=== PATIENT | male | born 1955 | race African-American/Black ===

== ENCOUNTER → 2017-02-07 | Outpatient (CLI) | payer MEDICARE, OTHER ==
[~2017-02-07] VITALS: Ht 154.9 cm; Wt 102.1 kg
[~2017-02-07] MED LIST: ALBU0.63 NEB; ASPI325T PO; ATEN25TA PO; CHOL1TAB31 PO; COLE1TAB2 PO; DO NOT ADM ANY ANTICOAGULANT DRUGS XX PRN; HUMALOG SQ; LANTUS2P SQ; NITR1SUB3 SL; ONABOTULINUMTOXINA INJ 100 UNITS/VIAL ONE; PROPOFOL 200 MG/20 ML AMP IV ONE; PROT40TA PO; TIOT1AER2 INH; TUMS500C CHEW; ZANT150T2 PO
[2017-02-07 09:50] VITALS: BP 177/74; PULSE 70; RESP 22; TEMP 99; O2SAT 90
--- NOTE | 2017-02-07 12:19 | GIPROC ---
[facility] [address] [facility]. [facility], [address] EGD WITH DILATION PROCEDURE REPORT EXAM DATE: 02/07/2017 PATIENT NAME: Sarbjit Burgess MR#: [id number] BIRTHDATE: 1955 ATTENDING: Abril Herndon MD ORDER #: [id number] TYPISTS SUPERVISOR: Bran Schneider and Broderick Cesar STATUS: outpatient INDICATIONS: The patient is a 61 yr old male here for an EGD with dilation due to achalasia dysphagia PROCEDURE PERFORMED: EGD w/ dilation of esophagus via guidewire EGD w/ directed submucosal injection(s), any substance MEDICATIONS: Per Anesthesia and None. TOPICAL ANESTHETIC: Cetacaine [place] CONSENT: The patient understands the risks and benefits of the procedure and understands that these risks include, but are not limited to: sedation, allergic reaction, infection, perforation and/or bleeding. Alternative means of evaluation and treatment include, among others: physical exam, x-rays, and/or surgical intervention. The patient elects to proceed with this endoscopic procedure. medical equipment was checked for proper function. Hand hygiene and appropriate measures for infection prevention was taken. After the risks, benefits and alternatives of the procedure were thoroughly explained, Informed consent was verified, confirmed and timeout was successfully executed by the treatment team. The patient was anesthetized with topical anesthesia and the Pentax EG-[id number] endoscope was introduced through the mouth and advanced to the second portion of the duodenum. The instrument was slowly withdrawn as the mucosa was fully examined. Dilated esophagus tight eg junction retained food in stomach suggesting gastroparesis BOTOX injected in distal esophagus-100 units-25 units in each quadrant. Dilation was performed at gastroesophageal junction. DILATOR: SIZE(S): RESISTANCE: HEME: APPEARANCE: Dilator: Savary over guidewire Size(s): 17 COMMENT: Retroflexed views revealed a hiatal hernia ADVERSE EVENTS: There were no complications. IMPRESSIONS: 1. Dilated esophagus tight eg junction retained food in stomach suggesting gastroparesis BOTOX injected in distal esophagus-100 units-25 units in each quadrant 2. Retroflexed views revealed a hiatal hernia RECOMMENDATIONS: 1. Await biopsy results. Biopsy results will not be ready for 7-10 days. If you don't hear from us in two weeks, call our office for biopsy results. 2. Anti-reflux regimen 3. Continue PPI 4. Avoid NSAIDS REPEAT EXAM: Return 6 months EGD with dilatation Abril Herndon MD eSigned: Abril Herndon MD 02/07/2017 12:19 PM cc: Gideon Wadsworth M.D. DOCUMENT ADDENDUM eSigned: Abril Herndon MD 02/07/2017 12:35 PM Reason for addendum: [ ] Correction of inaccurate information [ ] Recently acquired lab/pathology results [x] Additional information Comments: biopsy from distal esophagus-esophagitis PATIENT NAME: Sarbjit Burgess MR#: [id number]
[2017-02-07 12:50] VITALS: BP 152/75; PULSE 62; RESP 20; TEMP 98.6; O2SAT 93
== END ==
LOC: HEND 08:57
PROVIDERS: ATTEND Internal Medicine Gastroenterology
DX: K22.0 Achalasia of cardia (principal); R13.10 Dysphagia, unspecified; K44.9 Diaphragmatic hernia without obstruction or gangrene; K21.0 Gastro-esophageal reflux disease with esophagitis
CPT/HCPCS: 00740; 43236; 43239; 43248; 76937; 88305; C1769; J0585

== ENCOUNTER 2017-08-01 07:57 | Observation (INO) | payer MEDICARE, OTHER ==
[~2017-08-01] VITALS: Ht 154.9 cm; Wt 93.8 kg
[~2017-08-01 07:57] MED LIST changes: -DO NOT ADM ANY ANTICOAGULANT DRUGS XX PRN; -ONABOTULINUMTOXINA INJ 100 UNITS/VIAL ONE; -PROPOFOL 200 MG/20 ML AMP IV ONE
[2017-08-01] MEDS ORDERED: PROPOFOL 200 MG/20 ML AMP IV PUSH ONE (07:58)
[2017-08-01] MEDS ORDERED: LACT10SO PO (08:29)
[2017-08-01] MEDS ORDERED: AMLO10TA2 PO (08:29)
[2017-08-01] MEDS ORDERED: METOPROLOL TARTRATE 25 MG TAB PO PRN (08:45)
[2017-08-01] MEDS ORDERED: INSULIN HUMAN REGULAR 1,000 UNITS/10 ML VIAL SQ PRN (08:45)
[2017-08-01] MEDS ORDERED: CHLORHEXIDINE GLUCONATE 2 % 1 PACK (2 CLOTHS) TOPICAL PRN (08:45)
[2017-08-01] MEDS ORDERED: LACTATED RINGER'S 1000 ML IV PRN (08:45)
[2017-08-01] MEDS ORDERED: SODIUM CHLORID 0.9% 500 ML IV PRN (08:45)
[2017-08-01] MEDS ORDERED: POVIDONE IODINE 5% (ANTISEPSIS KIT) 4 APPLICATIONS EACH NARE PRN (08:45)
[2017-08-01] MEDS ORDERED: DEXTROSE 5%-LACTATED RING INJ 1,000 ML IV ONE (09:00)
[2017-08-01] MEDS ORDERED: KETAMINE HCL 500 MG/5 ML VIAL ONE (09:59)
[2017-08-01] MEDS ORDERED: ONABOTULINUMTOXINA INJ 100 UNITS/VIAL ONE (10:00)
[2017-08-01] MEDS ORDERED: GLYCOPYRROLATE 0.2 MG/ML VIAL IV ONE (10:08)
--- NOTE | 2017-08-01 10:46 | GIPROC ---
[facility] [address] [facility]. [facility], [address] EGD PROCEDURE REPORT EXAM DATE: 08/01/2017 PATIENT NAME: Sarbjit Burgess MR #: [id number] BIRTHDATE: 1955 ATTENDING: Abril Herndon MD ORDER #: [id number] CATERPILLAR TRACTOR OPERATOR: Lynsey Love and Jennifer Kaiser STATUS: outpatient INDICATIONS: The patient is a 62 yr old male here for an EGD due to dysphagia PROCEDURE PERFORMED: EGD w/ biopsy EGD w/ dilation of esophagus via guidewire egd with botox EGD w/ directed submucosal injection(s), any substance MEDICATIONS: None and Per Anesthesia. TOPICAL ANESTHETIC: none CONSENT: The patient understands the risks and benefits of the procedure and understands that these risks include, but are not limited to: sedation, allergic reaction, infection, perforation and/or bleeding. Alternative means of evaluation and treatment include, among others: physical exam, x-rays, and/or surgical intervention. The patient elects to proceed with this endoscopic procedure. medical equipment was checked for proper function. Hand hygiene and appropriate measures for infection prevention was taken. After the risks, benefits and alternatives of the procedure were thoroughly explained, Informed consent was verified, confirmed and timeout was successfully executed by the treatment team. The patient was anesthetized with topical anesthesia and the Pentax EG-[id number] endoscope was introduced through the mouth and advanced to the second portion of the duodenum. Retroflexed views revealed a hiatal hernia The gastroscope was then slowly withdrawn and removed. Gastritis antrum biopsy old peg tube site noted esophagitis distal esophagus-biopsy dilated esophagus, tight EG junction -consistent with achalasia BOTOX injected-100 units at EG junction - 25 units in each quadrant. ADVERSE EVENTS: There were no complications. IMPRESSIONS: 1. Gastritis antrum biopsy old peg tube site noted esophagitis distal esophagus-biopsy dilated esophagus, tight EG junction -consistent with achalasia BOTOX injected-100 units at EG junction - 25 units in each quadrant 2. Retroflexed views revealed a hiatal hernia RECOMMENDATIONS: 1. Await biopsy results. Biopsy results will not be ready for 7-10 days. If you don't hear from us in two weeks, call our office for biopsy results. 2. Anti-reflux regimen 3. Continue PPI 4. Dilatations PRN PATIENT CONDITION: stable DISPOSITION: Home REPEAT EXAM: EGD pending biopsy results Abril Herndon MD eSigned: Abril Herndon MD 08/01/2017 10:45 AM cc: Gideon Wadsworth M.D. DOCUMENT ADDENDUM eSigned: Abril Herndon MD 08/01/2017 11:23 AM Reason for addendum: [ ] Correction of inaccurate information [ ] Recently acquired lab/pathology results [x] Additional information Comments: s/p dilatation using Savary dilator 18 patietn will be kept 23 hr observations -s/p general anesthesia nneeds close monitoring PATIENT NAME: Sarbjit Burgess MR#: [id number]
[2017-08-01] MEDS ORDERED: *RESP: ALBUTEROL 2.5 MG/3 ML NEB (PRN) PERIprocedural Use ONLY NEB ONE (11:12)
[2017-08-01] MEDS ORDERED: *ONDANSETRON 4 MG VIAL PERIprocedural Use ONLY ONE (11:22)
--- NOTE | 2017-08-01 11:58 | RADRPT ---
EXAM DATE/TIME: 08/01/2017 11:19 [place] COMPARISON: CHEST SINGLE AP, May 03, 2016, 13:25. INDICATIONS : Cough post operatively. MEDICAL HISTORY : none available SURGICAL HISTORY : None. ENCOUNTER: Initial ACUITY: 1 day PAIN SCORE: 0/10 LOCATION: Bilateral upper chest FINDINGS: A single view of the chest demonstrates the lungs to be symmetrically aerated without evidence of mas s, infiltrate or effusion. The cardiomediastinal contours are unremarkable. Osseous structures are intact. CONCLUSION: Normal examination. David Bird MD on August 01, 2017 at 11:57 Board Certified Radiologist. This report was verified electronically.
[2017-08-01] MEDS ORDERED: DO NOT ADM ANY ANTICOAGULANT DRUGS PRN (12:15)
[2017-08-01] MEDS ORDERED: CALCIUM CARBONATE 500 MG CHEWABLE TAB CHEW PRN (13:00)
[2017-08-01] MEDS ORDERED: RESP: ALBUTEROL 0.63 MG/3 ML NEB (PRN) NEB (13:00)
[2017-08-01] MEDS ORDERED: ONDANSETRON HCL 4 MG/2 ML VIAL IVP PRN (13:00)
[2017-08-01] MEDS ORDERED: SODIUM CHLOR 0.9% 1000 ML INJ 1,000 ML IV SCH (13:00)
[2017-08-01] MEDS ORDERED: NALOXONE HCL 0.4 MG/ML AMP IV PUSH PRN (13:00)
[2017-08-01] MEDS ORDERED: SODIUM CHLORIDE 0.9% FLUSH 10 ML FLUSH IV FLUSH PRN (13:00)
[2017-08-01] MEDS ORDERED: ACETAMINOPHEN 325 MG TAB PO PRN (13:00)
[2017-08-01] MEDS ORDERED: DEXTROSE 50% IN WATER 50 ML VIAL(D50) IV PRN (13:15)
[2017-08-01] MEDS ORDERED: GLUCAGON 1 MG/ML VIAL OTHER PRN (13:15)
[2017-08-01] MEDS ORDERED: PT OWN MED: SPIRIVA RESPIMAT 2 INH DAILY INH SCH (13:45)
[2017-08-01] MEDS ORDERED: hydrALAZINE HCL 20 MG/ML VIAL ONE (14:27)
[2017-08-01 14:54] VITALS: BP 150/70; PULSE 68; RESP 16; TEMP 96.6; O2SAT 95
--- NOTE | 2017-08-01 15:57 | HHI.HP ---
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 Patient has significant past medical history achalasia and dilated esophagus. Patient follows up regularly with Dr. Herndon. Patient was admitted today for elective EGD with Botox injection. Per review of medical records, patient had an apneic event and desatted as he was being prepped for procedure. He required intubation by anesthesiology. Procedure was completed, patient tolerated well and was extubated in PACU. Dr. Herndon requested hospitalist admission for observation. Patient is somewhat of a poor historian, is at bedside providing most details. Patient does indicate that he did have some chest discomfort prior to procedure, no radiation. Was SOB, no wheezing. No recent fever, no chills. Patient is oxygen dependent and is chronically short of breath. His concrete rod buster is Dr. Colon. He has sleep apnea uses CPAP at night. At this time, he denies any chest pain, no shortness of breath. He is taking a regular diet and does not appear to be having any difficulty. Denies any history of coronary artery disease, does not have a regular data entry technician. He has had pericardiocentesis before as well as CHF. He has been compliant with his dialysis, he is on Saturday and Saturday. Chest x-ray was completed, no acute findings. Laboratory workup is pending. Patient is admitted for further evaluation and treatment. Review of Systems ROS Limitations: Poor Historian Constitutional: DENIES: Diaphoretic episodes, Fatigue, Fever, Weight gain, Weight loss, Chills, Dizziness, Change in appetite, Night Sweats Endocrine: DENIES: Heat/cold intolerance, Polydipsia, Polyuria, Polyphagia Eyes: DENIES: Blurred vision, Diplopia, Eye inflammation, Eye pain, Vision loss , Photosensitivity, Double Vision Respiratory: COMPLAINS OF: Shortness of breath, DENIES: Apneas, Cough, Snoring , Wheezing, Hemoptysis, Sputum production Cardiovascular: COMPLAINS OF: Chest pain, DENIES: Palpitations, Syncope, Dyspnea on Exertion, PND, Lower Extremity Edema, Orthopnea, Claudication Gastrointestinal: COMPLAINS OF: Constipation, Difficulty Swallowing, DENIES: Abdominal pain, Black stools, Bloody stools, Diarrhea, Nausea, Vomiting, Anorexia Genitourinary: DENIES: Sexual dysfunction, Urinary frequency, Urinary incontinence, Urgency, Hematuria, Dysuria, Nocturia, Penile Discharge, Testicular Pain, Testicular Swelling Musculoskeletal: DENIES: Joint pain, Muscle aches, Stiffness, Joint Swelling, Back pain, Neck pain Integumentary: DENIES: Abnormal pigmentation, Nail changes, Pruritus, Rash Hematologic/lymphatic: DENIES: Bruising, Lymphadenopathy Immunologic/allergic: DENIES: Eczema, Urticaria Neurologic: COMPLAINS OF: Abnormal gait, DENIES: Headache, Localized weakness, Paresthesias, Seizures, Speech Problems, Tremor, Poor Balance Psychiatric: DENIES: Anxiety, Confusion, Mood changes, Depression, Hallucinations, Agitation, Suicidal Ideation, Homicidal Ideation, Delusions Past Family Social History Past Medical History End-stage renal disease. Hypertension. Diabetes mellitus. Failed kidney transplant. COPD oxygen dependent Sleep apnea, uses CPAP at . Dr. Brandon is pulmonology Achalasia Constipation Hiatal esophagus PUD Congestive heart failure Pericardiocentesis CT in the past, doesn't see a data entry technician Previous PEG tube, was removed Gastroparesis Neurogenic bladder Iron deficiency anemia Hyperlipidemia Hyperparathyroidism TIA History of aspiration pneumonia Past Surgical History Kidney transplantation. Placement of AV dialysis shunt. Previous EGD with dilatation and Botox injection Previous colonoscopy PEG tube placement and removal Reported Medications Reported Meds & Active Scripts Active Reported Lactulose Liq (Lactulose) 10 Gm/15 Ml Soln 30 Ml PO BID Amlodipine (Amlodipine Besylate) 10 Mg Tab 10 Mg PO DAILY Spiriva Respimat Inh (Tiotropium Inh) 1.25 Mcg/Act Aero 2 Puff INH DAILY 1.25 mcg = 1 inhalation Zantac (Ranitidine HCl) 150 Mg Tab 150 Mg PO DAILY Protonix (Pantoprazole Sodium) 40 Mg Tab 40 Mg PO DAILY Humalog Inj (Insulin Human Lispro) 1,000 Unit/10 Ml Vial 1-9 Units SQ ACHS Max dose at bedtime:( )units; sugars< 70,(0)units; sugars 150-199,(1)unit; sugars 200-249,(3)units; sugars 250-299,(5)units; sugars 300-349,(7)units; sugars more than 349,(9)units. Lantus Inj (Insulin Glargine) 1,000 Unit/10 Ml Vial 20 Units SQ HS Colestipol (Colestipol HCl) 1 Gm Tab 2 Gm PO BID Vitamin D3 Super Strength (Cholecalciferol) 2,000 Unit Tab 2,000 Units PO DAILY Tums (Calcium Carbonate (Antacid)) 500 Mg Chew 500 Mg CHEW TID PRN Aspirin 325 Mg Tab 325 Mg PO DAILY Albuterol Neb (Albuterol Sulfate) 0.63 Mg/3 Ml Neb 0.63 Mg NEB Q6HR NEB PRN Allergies: Coded Allergies: cephalexin (Unverified Allergy, Unknown, 08/01/17) rash *MDRO Multi-Drug Resistant Organism (Unverified Adverse Reaction, Unknown , 08/01/17) ESBL (abdomenn wound) 08/2012 Active Ordered Medications Inpatient Medications Acetaminophen (Tylenol) 650 mg Q4H PRN PO TEMP > 100.4; Start 08/01/17 at 13:00 Albuterol Sulfate (Albuterol Neb) 0.63 mg Q6HR NEB PRN NEB SHORTNESS OF BREATH ; Start 08/01/17 at 13:00 Amlodipine Besylate (Norvasc) 10 mg DAILY PO ; Start 08/02/17 at 09:00 Aspirin (Aspirin) 325 mg DAILY PO ; Start 08/02/17 at 09:00 Calcium Carbonate (Tums Chew) 500 mg TID PRN CHEW HEARTBURN; Start 08/01/17 at 13:00 Chlorhexidine Gluconate (Chlorhexidine 2% Cloth) 3 pack GREASE REMOVER PRN TOPICAL SEE LABEL COMMENTS; Start 08/01/17 at 08:45; Stop 08/04/17 at 08:44 Cholecalciferol (Vitamin D3) 2,000 units DAILY PO ; Start 08/02/17 at 09:00 Dextrose (D50w (Vial) Inj) 50 ml UNSCH PRN IV HYPOGLYCEMIA-SEE COMMENTS; Start 08/01/17 at 13:15 Dextrose/Lactated Ringer's 1,000 ml @ 41.667 mls/ hr Q24H ONCE IV ; Start 08/01 at 09:00; Stop 08/02/17 at 08:59 Famotidine (Pepcid) 20 mg DAILY PO ; Start 08/02/17 at 09:00 Glucagon (Glucagon Inj) 1 mg UNSCH PRN OTHER HYPOGLYCEMIA-SEE COMMENTS; Start 08/01/17 at 13:15 Insulin Aspart (NovoLOG SUPPLEMENTAL SCALE) 1 ACHS SLIDING SCALE SQ ; Start at 17:00 Insulin Human Regular (NovoLIN R INJ) See Protocol Table ... GREASE REMOVER PRN SQ SEE PROTOCOL TABLE; Start 08/01/17 at 08:45; Stop 08/04/17 at 08:44 Lactated Ringer's 1,000 ml @ 30 mls/hr Q24H PRN IV SEE LABEL COMMENTS; Start at 08:45; Stop 08/04/17 at 08:44 Lactulose (Lactulose Liq) 30 ml BID PO ; Start 08/01/17 at 21:00 Metoprolol Tartrate (Lopressor) 25 mg GREASE REMOVER PRN PO SEE LABEL COMMENTS; Start 08/01/17 at 08:45; Stop 08/04/17 at 08:44 Miscellaneous Information ALL NURSING DEPARTME... UNSCH PRN .XX SEE LABEL COMMENTS; Start 08/01/17 at 12:15; Stop 08/02/17 at 12:14 Naloxone HCl (Narcan Inj) 0.4 mg UNSCH PRN IV PUSH SEE LABEL COMMENTS; Start at 13:00 Onabotulinumtoxina (Botox Inj) 100 units ONCE ONCE .XX Last administered on t 10:30; Start 08/01/17 at 10:00; Stop 08/01/17 at 10:01; Status DC Ondansetron HCl (Zofran Inj) 4 mg Q6H PRN IVP NAUSEA OR VOMITING; Start at 13:00 Pantoprazole Sodium (Protonix) 40 mg DAILY PO ; Start 08/02/17 at 09:00 Patient Own Medication PT OWN MED: SPIR... DAILY INH ; Start 08/01/17 at 13:45; Status Future Hold Povidone Iodine (Betadine 5% Antisepsis Kit) 1 applic GREASE REMOVER PRN EACH NARE SEE LABEL COMMENTS; Start 08/01/17 at 08:45; Stop 08/04/17 at 08:44 Sodium Chloride (NS Flush) 2 ml BID IV FLUSH ; Start 08/01/17 at 21:00 Family History Positive for diabetes, end-stage renal disease, heart disease, hypertension Social History Pt. is , has grown children. No alcohol, no substance abuse, never smoked. Uses a rolling walker for ambulation. Physical Exam Vital Signs Vital Signs Date Time Temp Pulse Resp B/P (MAP) Pulse Ox O2 Delivery O2 Flow Rate FiO2 08/01/17 14:54 96.6 68 16 150/70 (96) 95 08/01/17 12:15 70 16 123/57 (79) 100 08/01/17 12:00 62 15 121/58 (79) 97 08/01/17 11:45 69 16 158/80 (106) 95 08/01/17 11:30 79 16 175/74 (107) 95 08/01/17 11:15 77 17 161/70 (100) 100 08/01/17 10:58 98.0 73 20 158/89 (112) 100 Physical Exam GENERAL: This is a well-nourished, well-developed patient, in no apparent distress. SKIN: No rashes, ecchymoses or lesions. Cool and dry. HEAD: Atraumatic. Normocephalic. No temporal or scalp tenderness. EYES: Right pupil reactive. 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 Extraocular motions intact. No scleral icterus. No injection or drainage. ENT: Nose without bleeding, purulent drainage or septal hematoma. Throat without erythema, tonsillar hypertrophy or exudate. Uvula midline. Airway patent. NECK: Trachea midline. No JVD or lymphadenopathy. Supple, nontender, no meningeal signs. CARDIOVASCULAR: Regular rate and rhythm without murmurs, gallops, or rubs. RESPIRATORY: Diminished at bases GASTROINTESTINAL: Abdomen soft, non-tender, nondistended. No hepato-splenomegaly , or palpable masses. No guarding. MUSCULOSKELETAL: Extremities without clubbing, cyanosis, or edema. Pedal pulses 2+ bilaterally. No joint tenderness, effusion, or edema noted. No calf tenderness. Negative Homans sign bilaterally. Left upper extremity with AV fistula, positive bruit and thrill NEUROLOGICAL: Awake, alert oriented 3. No focal deficits. Imaging Last Impressions Chest X-Ray 08/01/17 0000 Signed Impressions: Service Date/Time: July 11:19 - CONCLUSION: Normal examination. MD Nathaniel Hubbard VTE Risk Assessment [place] VTE Risk Assessment: Mod/High Risk (score >= 2) Caprini Risk Assessment Model Point Value = 1 Point Value = 2 Point Value = 3 Point Value = 5 Age 41-60 Minor surgery BMI > 25 kg/m2 Swollen legs Varicose veins or History of unexplained or recurrent spontaneous Oral contraceptives or hormone replacement Sepsis (< 1 month) Serious lung disease, including pneumonia (< 1 month) Abnormal pulmonary function Acute myocardial infarction Congestive heart failure (< 1 month) History of inflammatory bowel disease Medical patient at bed rest Age 61-74 Arthroscopic surgery Major open surgery (> 45 min) Laparoscopic surgery (> 45 min) Malignancy Confined to bed (> 72 hours) Immobilizing plaster cast Central venous access Age >= 75 History of VTE Family history of VTE Factor V Leiden Prothrombin [id number] Lupus anticoagulant Anticardiolipin antibodies Elevated serum homocysteine Heparin-induced thrombocytopenia Other congenital or acquired thrombophilia Stroke (< 1 month) Elective arthroplasty Hip, pelvis, or leg fracture Acute spinal cord injury (< 1 month) Prophylaxis Regimen Total Risk Factor Score Risk Level Prophylaxis Regimen 0-1 Low Early ambulation 2 Moderate Order ONE of the following: *Sequential Compression Device (SCD) *Heparin 5000 units SQ BID 3-4 Higher Order ONE of the following medications: *Heparin 5000 units SQ TID *Enoxaparin/Lovenox 40 mg SQ daily (WT < 150 kg, CrCl > 30 mL/min) *Enoxaparin/Lovenox 30 mg SQ daily (WT < 150 kg, CrCl > 10-29 mL/min) *Enoxaparin/Lovenox 30 mg SQ BID (WT < 150 kg, CrCl > 30 mL/min) AND/OR *Sequential Compression Device (SCD) 5 or more Highest Order ONE of the following medications: *Heparin 5000 units SQ TID (Preferred with Epidurals) *Enoxaparin/Lovenox 40 mg SQ daily (WT < 150 kg, CrCl > 30 mL/min) *Enoxaparin/Lovenox 30 mg SQ daily (WT < 150 kg, CrCl > 10-29 mL/min) *Enoxaparin/Lovenox 30 mg SQ BID (WT < 150 kg, CrCl > 30 mL/min) AND *Sequential Compression Device (SCD) Assessment and Plan Problem List: (1) Chest pain ICD Codes: R07.9 - Chest pain, unspecified Status: Acute (2) Hypoxia ICD Codes: R09.02 - Hypoxemia Status: Acute (3) Dysphagia ICD Codes: R13.10 - Dysphagia, unspecified Status: Acute (4) ESRD (end stage renal disease) on dialysis ICD Codes: N18.6 - End stage renal disease; Z99.2 - Dependence on renal dialysis Status: Chronic (5) HTN (hypertension) ICD Codes: I10 - Essential (primary) hypertension Status: Chronic (6) Diabetes 1.5, managed as type 2 ICD Codes: E10.9 - Type 1 diabetes mellitus without complications Status: Chronic (7) Achalasia ICD Codes: K22.0 - Achalasia of cardia Status: Acute (8) COPD (chronic obstructive pulmonary disease) ICD Codes: J44.9 - Chronic obstructive pulmonary disease, unspecified Status: Chronic Assessment and Plan Admit to Dr. Honeycutt 62-year-old male presented for elective EGD with Botox injection for history of achalasia, had apneic event with hypoxia. Complaining of chest pain. Chest pain, rule out acute coronary syndrome -CBC and BMP have order -We will do serial cardiac enzymes and EKG and monitor for any changes. If positive, consult cardiology -Patient already on aspirin Episode of hypoxia preprocedure COPD oxygen dependent -Chest x-ray has been completed, findings of been reviewed. No acute findings. -Continue supplemental oxygen to keep sats greater than 92 -DuoNeb's as needed Hypertension, stable -Continue home meds End-stage renal disease on dialysis Saturday and Saturday. Compliant with treatments -Consult nephrology Type 2 diabetes -Accu-Cheks before meals and at bedtime with insulin therapy as needed Sleep apnea -Continue with CPAP from home History of achalasia with dilated esophagus status post EGD with Botox injection-findings of gastritis to the antrum, all PEG tube site noted, esophagitis distal esophagus, dilated esophagus with tight EG junction consistent with achalasia. Was injected with the 100 units of Botox. -Continue present diet -Monitor for dysphagia -Continue with PPI -GI following Home medications reviewed, initiated as indicated Continue with Pepcid for GI prophylaxis SCDs for DVT prophylaxis Plan of care has been discussed with the patient and his , attending and registered nurse. Further management of the patient will be dependent on the hospital course This patient was seen by myself and Dr. Honeycutt, this H&P is written on his behalf Problem Qualifiers (1) Chest pain: Qualified Codes: R07.9 - Chest pain, unspecified (2) Dysphagia: Qualified Codes: R13.10 - Dysphagia, unspecified (3) HTN (hypertension): Qualified Codes: I10 - Essential (primary) hypertension (4) COPD (chronic obstructive pulmonary disease): Harika Chawla Aug 01, 2017 15:57
[2017-08-01] MEDS ORDERED: RESP: ALBUTEROL 2.5 MG/IPRATROPIUM 0.5 MG NEB (PRN) NEB (16:45)
[2017-08-01] MEDS: INSULIN ASPART SUPPLEMENTAL SCALE SQ SCH ×2 (17:00→21:00)
[2017-08-01 18:45] LABS: CREATINE KINASE 189 U/L (39-308)
[2017-08-01 19:17] VITALS: BP 165/73; PULSE 67; RESP 18; TEMP 98.4; O2SAT 97
[2017-08-01] MEDS: RESP: ALBUTEROL 1.25 MG/3 ML NEB (SCH) NEB (19:59)
[2017-08-01 20:07] VITALS: O2SAT 98
[2017-08-01 20:11] VITALS: O2SAT 96
[2017-08-01] MEDS ORDERED: COLESTIPOL 2 GM PO SCH (21:00)
[2017-08-01] MEDS: LACTULOSE SYRUP 20 GM/30 ML CUP PO SCH (21:14)
[2017-08-01] MEDS: SODIUM CHLORIDE 0.9% FLUSH 10 ML FLUSH IV FLUSH SCH (21:19)
[2017-08-01 23:54] VITALS: BP 149/55; PULSE 70; RESP 18; TEMP 97.6; O2SAT 98
[2017-08-01 23:58] VITALS: BP 137/70; PULSE 80; RESP 18; TEMP 100.4; O2SAT 95
[2017-08-02 03:46] VITALS: BP 127/66; PULSE 83; RESP 18; TEMP 96.7; O2SAT 93
[2017-08-02] MEDS: RESP: ALBUTEROL 1.25 MG/3 ML NEB (SCH) NEB ×5 (05:34→16:13)
[2017-08-02 06:13] LABS: HEMATOCRIT 30.2 % (39.0-51.0); MEAN CELL VOLUME 76.2 FL (80.0-100.0); MEAN CORPUSCULAR HEMOGLOBIN 23.7 PG (27.0-34.0); MEAN CORPUSCULAR HGB CONC 31.2 % (32.0-36.0); PLATELET COUNT 196 TH/MM3 (150-450); RED BLOOD COUNT 3.96 MIL/MM3 (4.50-5.90); RED CELL DISTRIBUTION WIDTH 15.1 % (11.6-17.2); REVIEW FLAG FINAL
[2017-08-02 06:38] LABS: CREATINE KINASE 116 U/L (39-308)
[2017-08-02 07:23] LABS: BLOOD UREA NITROGEN 41 MG/DL (7-18); GLOMERULAR FILTRATION RATE 8 ML/MIN (>89)
[2017-08-02 07:24] LABS: ANION GAP 8 MEQ/L (5-15); BICARBONATE 25.8 MEQ/L (21.0-32.0); CHLORIDE 102 MEQ/L (98-107); CREATINE KINASE 145 U/L (39-308); POTASSIUM 4.8 MEQ/L (3.5-5.1); SODIUM (NA) 136 MEQ/L (136-145)
--- NOTE | 2017-08-02 07:51 | EKG ---
Date Performed: 08/01/2017 Time Performed: 08:42:15 PTAGE: 62 years EKG: Left axis deviation Poor R-wave progression, which may be due to the left axis deviation AB NORMAL ECG PREVIOUS TRACING : 05/03/2016 19.52 Since previous tracing, no significant change. DOCTOR: Bacilio Vitale Interpretating Date/Time 08/02/2017 07:50:26
[2017-08-02 08:00] VITALS: BP 147/71; PULSE 74; RESP 18; TEMP 98.4; O2SAT 97
[2017-08-02] MEDS: INSULIN ASPART SUPPLEMENTAL SCALE SQ SCH ×2 (08:00→12:37)
[2017-08-02] MEDS ORDERED: CHOLECALCIFEROL (VIT D3) 1000 UNIT TAB PO SCH (09:00)
[2017-08-02] MEDS ORDERED: FAMOTIDINE 20 MG TAB PO SCH (09:00)
[2017-08-02] MEDS ORDERED: ASPIRIN 325 MG TAB PO SCH (09:00)
[2017-08-02] MEDS ORDERED: PANTOPRAZOLE SOD 40 MG DELAYED RELEASE TAB PO SCH (09:00)
[2017-08-02] MEDS ORDERED: SODIUM CHLOR 0.9% 1000 ML INJ 1,000 ML IV PRN (09:19)
[2017-08-02] MEDS ORDERED: SODIUM CHLOR 0.9% 1000 ML INJ 1,000 ML OTHER PRN ×2 (09:19)
[2017-08-02 09:22] VITALS: O2SAT 99
[2017-08-02] MEDS ORDERED: NITROGLYCERIN 0.4 MG SL 25 TABS/BTL SL PRN (09:30)
[2017-08-02] MEDS ORDERED: HEPARIN SODIUM - IV 10,000 UNITS/10 ML VIAL IV FLUSH PRN (09:30)
[2017-08-02] MEDS ORDERED: SODIUM CHLORIDE 0.9% FLUSH 10 ML FLUSH IV FLUSH PRN (09:30)
[2017-08-02] MEDS ORDERED: cloNIDine HCL 0.1 MG TAB PO PRN (09:30)
[2017-08-02] MEDS ORDERED: EPOETIN ALFA 10,000 UNITS/ML VIAL IV PRN (09:30)
[2017-08-02] MEDS ORDERED: ACETAMINOPHEN 325 MG TAB PO PRN (09:30)
[2017-08-02] MEDS ORDERED: MANNITOL 12.5 GM/50 ML VIAL IV PRN (09:30)
[2017-08-02] MEDS ORDERED: GELATIN 12 MM/7 MM FOAM TOP PRN (09:30)
[2017-08-02] MEDS ORDERED: diphenhydrAMINE HCL 25 MG CAP PO PRN (09:30)
[2017-08-02] MEDS ORDERED: GENTAMICIN SULFATE (DIALYSIS USE ONLY) 20 MG/2 ML VIAL OTHER PRN (09:30)
[2017-08-02] MEDS ORDERED: ALBUMIN HUMAN 25% 25 GM/100 ML BAGP IV PRN (09:30)
[2017-08-02] MEDS ORDERED: HEPARIN SODIUM - IV 10,000 UNITS/10 ML VIAL PRN (09:30)
[2017-08-02] MEDS ORDERED: ONDANSETRON HCL 4 MG/2 ML VIAL IV PUSH PRN (09:30)
[2017-08-02] MEDS: LACTULOSE SYRUP 20 GM/30 ML CUP PO SCH (09:45)
[2017-08-02] MEDS: SODIUM CHLORIDE 0.9% FLUSH 10 ML FLUSH IV FLUSH SCH (09:47)
[2017-08-02 12:00] VITALS: BP 145/87; PULSE 74; RESP 18; TEMP 96.7; O2SAT 96
--- NOTE | 2017-08-02 12:07 | PD.CONS ---
HPI Service Nephrology Consult Requested By LURDES Morales Reason for Consult Known to our services for ESRD Primary Care Physician Sandip Wadsworth MD History of Present Illness The patient is a 62 yo AA male who is known to our services for ESRD. Came to this facility 08/01 for elective EGD with botox injection and apparently had apneic event after procedure. Was intubated for short time and extubated in PACU. He was admitted for overnight obs. States he is feeling well. Was having some SOB yesterday, but resolved today. Overall, denies any complaints. (Lashell Ch) Past Family Social History Allergies: Coded Allergies: cephalexin (Unverified Allergy, Unknown, 08/01/17) rash *MDRO Multi-Drug Resistant Organism (Unverified Adverse Reaction, Unknown , 08/01/17) ESBL (abdomenn wound) 08/2012 Past Medical History End-stage renal disease Hypertension. Diabetes mellitus. Failed kidney transplant. COPD oxygen dependent Sleep apnea, uses CPAP at . Dr. Brandon is pulmonology Achalasia Constipation Hiatal esophagus PUD Congestive heart failure Pericardiocentesis [place] in the past, doesn't see a building supervisor Previous PEG tube, was removed Gastroparesis Neurogenic bladder Iron deficiency anemia Hyperlipidemia Hyperparathyroidism TIA History of aspiration pneumonia Past Surgical History Kidney transplantation. Placement of AV dialysis shunt. Previous EGD with dilatation and Botox injection Previous colonoscopy PEG tube placement and removal Reported Medications Reported Meds & Active Scripts Active Reported Lactulose Liq (Lactulose) 10 Gm/15 Ml Soln 30 Ml PO BID Amlodipine (Amlodipine Besylate) 10 Mg Tab 10 Mg PO DAILY Spiriva Respimat Inh (Tiotropium Inh) 1.25 Mcg/Act Aero 2 Puff INH DAILY 1.25 mcg = 1 inhalation Zantac (Ranitidine HCl) 150 Mg Tab 150 Mg PO DAILY Protonix (Pantoprazole Sodium) 40 Mg Tab 40 Mg PO DAILY Humalog Inj (Insulin Human Lispro) 1,000 Unit/10 Ml Vial 1-9 Units SQ ACHS Max dose at bedtime:( )units; sugars< 70,(0)units; sugars 150-199,(1)unit; sugars 200-249,(3)units; sugars 250-299,(5)units; sugars 300-349,(7)units; sugars more than 349,(9)units. Lantus Inj (Insulin Glargine) 1,000 Unit/10 Ml Vial 20 Units SQ HS Colestipol (Colestipol HCl) 1 Gm Tab 2 Gm PO BID Vitamin D3 Super Strength (Cholecalciferol) 2,000 Unit Tab 2,000 Units PO DAILY Tums (Calcium Carbonate (Antacid)) 500 Mg Chew 500 Mg CHEW TID PRN Aspirin 325 Mg Tab 325 Mg PO DAILY Albuterol Neb (Albuterol Sulfate) 0.63 Mg/3 Ml Neb 0.63 Mg NEB Q6HR NEB PRN Active Ordered Medications Current Medications Medications (Trade) Dose Ordered Sig/Seun Route Start Time Stop Time Status Last Admin Lactated Ringer's 1,000 ml @ 30 mls/hr Q24H PRN IV 08/01/17 08:45 08/04/17 08:44 Sodium Chloride 500 ml @ 30 mls/hr [id number] PRN IV 08/01/17 08:45 08/04/17 08:44 (Lopressor) 25 mg POURER BUGGY LADLE PRN PO 08/01/17 08:45 08/04/17 08:44 (Betadine 5% Antisepsis Kit) 1 applic POURER BUGGY LADLE PRN EACH NARE 08/01/17 08:45 08/04/17 08:44 (Chlorhexidine 2% Cloth) 3 pack POURER BUGGY LADLE PRN TOPICAL 08/01/17 08:45 08/04/17 08:44 (NovoLIN R INJ) See Protocol Table ... POURER BUGGY LADLE PRN SQ 08/01/17 08:45 08/04/17 08:44 (Albuterol Neb) 1.25 mg Q4HR NEB NEB 08/01/17 12:00 08/02/17 09:07 Miscellaneous Information ALL NURSING DEPARTME... UNSCH PRN .XX 08/01/17 12:15 08/02/17 12:14 (NS Flush) 2 ml UNSCH PRN IV FLUSH 08/01/17 13:00 (NS Flush) 2 ml BID IV FLUSH 08/01/17 21:00 08/02/17 09:47 (Tylenol) 650 mg Q4H PRN PO 08/01/17 13:00 (Zofran Inj) 4 mg Q6H PRN IVP 08/01/17 13:00 (Narcan Inj) 0.4 mg UNSCH PRN IV PUSH 08/01/17 13:00 (Albuterol Neb) 0.63 mg Q6HR NEB PRN NEB 08/01/17 13:00 (Norvasc) 10 mg DAILY PO 08/02/17 09:00 08/02/17 09:46 (Aspirin) 325 mg DAILY PO 08/02/17 09:00 08/02/17 09:46 (Tums Chew) 500 mg TID PRN CHEW 08/01/17 13:00 (Vitamin D3) 2,000 units DAILY PO 08/02/17 09:00 08/02/17 09:46 (Lactulose Liq) 30 ml BID PO 08/01/17 21:00 08/02/17 09:45 (Protonix) 40 mg DAILY PO 08/02/17 09:00 08/02/17 09:46 Patient Own Medication PT OWN MED: COLESTI... BID PO 08/01/17 21:00 Future Hold (Pepcid) 20 mg DAILY PO 08/02/17 09:00 08/02/17 09:45 Patient Own Medication PT OWN MED: SPIR... DAILY INH 08/01/17 13:45 Future Hold (D50w (Vial) Inj) 50 ml UNSCH PRN IV 08/01/17 13:15 (Glucagon Inj) 1 mg UNSCH PRN OTHER 08/01/17 13:15 (NovoLOG SUPPLEMENTAL SCALE) 1 ACHS SLIDING SCALE SQ 08/01/17 17:00 (Duoneb Neb) 1 ampule Q8HR NEB PRN NEB 08/01/17 16:45 Sodium Chloride 1,000 ml @ 0 mls/hr Q0M PRN OTHER 08/02/17 09:19 (Heparin Inj) 8,000 units UNSCH PRN IV FLUSH 08/02/17 09:30 Sodium Chloride 1,000 ml @ 200 mls/hr Q5H PRN IV 08/02/17 09:19 Sodium Chloride 1,000 ml @ 0 mls/hr Q0M PRN OTHER 08/02/17 09:19 (Mannitol Inj) 12.5 gm UNSCH PRN IV 08/02/17 09:30 (Albumin 25% Inj) 25 gm UNSCH PRN IV 08/02/17 09:30 (NS Flush) 5 ml UNSCH PRN IV FLUSH 08/02/17 09:30 (Heparin Inj) UNSCH PRN .XX 08/02/17 09:30 (Gentamicin (Dialysis) Inj) 20 mg UNSCH PRN OTHER 08/02/17 09:30 (Zofran Inj) 4 mg UNSCH PRN IV PUSH 08/02/17 09:30 (Tylenol) 650 mg UNSCH PRN PO 08/02/17 09:30 (Benadryl) 25 mg UNSCH PRN PO 08/02/17 09:30 (Nitrostat Sl) 0.4 mg UNSCH PRN SL 08/02/17 09:30 (Catapres) 0.1 mg UNSCH PRN PO 08/02/17 09:30 (Epogen Inj) 10,000 units ONCE PRN IV 08/02/17 09:30 08/03/17 09:29 (Gelfoam 12 Mm/7 Mm Top) 1 foam UNSCH PRN TOP 08/02/17 09:30 Family History NC Social History , lives locally with Denies EtOH, no tobacco, no illicit drug use (Lashell Ch) Physical Exam Vital Signs Vital Signs Date Time Temp Pulse Resp B/P (MAP) Pulse Ox O2 Delivery O2 Flow Rate FiO2 08/02/17 09:22 99 Nasal Cannula 2.00 08/02/17 08:00 98.4 74 18 147/71 (96) 97 08/02/17 03:46 96.7 83 18 127/66 (86) 93 08/01/17 23:54 97.6 70 18 149/55 (86) 98 08/01/17 20:11 96 Nasal Cannula 1.50 08/01/17 20:07 98 Nasal Cannula 2.00 08/01/17 19:17 98.4 67 18 165/73 (103) 97 08/01/17 14:54 96.6 68 16 150/70 (96) 95 08/01/17 14:30 98.4 63 17 131/63 (85) 98 08/01/17 14:15 60 16 130/60 (83) 99 08/01/17 13:45 64 16 148/68 (94) 99 08/01/17 13:15 61 15 124/60 (81) 95 08/01/17 12:45 64 15 142/64 (90) 99 08/01/17 12:15 70 16 123/57 (79) 100 08/01/17 12:00 62 15 121/58 (79) 97 Physical Exam GENERAL: Pt sitting up in chair. NAD. On O2 SKIN: Warm and dry. HEAD: Atraumatic. Normocephalic. EYES: Pupils equal and round. No scleral icterus. No injection or drainage. ENT: No nasal bleeding or discharge. Mucous membranes pink and moist. NECK: Trachea midline. No JVD. CARDIOVASCULAR: Regular rate and rhythm. RESPIRATORY: No accessory muscle use. Clear to auscultation. Breath sounds equal bilaterally. GASTROINTESTINAL: Abdomen soft, non-tender, nondistended. Hepatic and splenic margins not palpable. MUSCULOSKELETAL: Extremities without clubbing, cyanosis. 1+ pitting edema up to mid-shins NEUROLOGICAL: Awake and alert Normal speech. PSYCHIATRIC: Appropriate mood and affect; insight and judgment normal. Laboratory Laboratory Tests Test 08/01/17 17:55 08/02/17 00:15 08/02/17 05:56 Total Creatine Kinase 189 145 116 Troponin I LESS THAN 0.02 LESS THAN 0.02 LESS THAN 0.02 Blood Urea Nitrogen 41 Creatinine 8.41 Random Glucose 136 Albumin 2.9 Calcium Level 8.1 Phosphorus Level 4.7 Sodium Level 136 Potassium Level 4.8 Chloride Level 102 Carbon Dioxide Level 25.8 Anion Gap 8 Estimat Glomerular Filtration Rate 8 White Blood Count 7.0 Red Blood Count 3.96 Hemoglobin 9.4 Hematocrit 30.2 Mean Corpuscular Volume 76.2 Mean Corpuscular Hemoglobin 23.7 Mean Corpuscular Hemoglobin Concent 31.2 Red Cell Distribution Width 15.1 Platelet Count 196 Mean Platelet Volume 7.9 (Lashell Ch) Result Diagram: 08/02/17 0556 08/02/17 0015 Imaging Last Impressions Chest X-Ray 08/01/17 0000 Signed Impressions: Service Date/Time: July 11:19 - CONCLUSION: Normal examination. David Bird MD (Lashell Ch) Assessment and Plan Problem List: (1) ESRD (end stage renal disease) on dialysis ICD Codes: N18.6 - End stage renal disease; Z99.2 - Dependence on renal dialysis Status: Chronic Plan: To continue on HD MWF as per outpatient schedule. Continue on phosphate binders Epogen today with HD Medications should be adjusted for ESRD. Avoid gadolinium (2) Anemia in chronic kidney disease (CKD) ICD Codes: N18.9 - Chronic kidney disease, unspecified; D63.1 - Anemia in chronic kidney disease Plan: Epogen today with HD (3) COPD (chronic obstructive pulmonary disease) ICD Codes: J44.9 - Chronic obstructive pulmonary disease, unspecified Status: Chronic Plan: Continue on home regimen (4) HTN (hypertension) ICD Codes: I10 - Essential (primary) hypertension Status: Chronic Plan: Continue current regimen (Lashell Ch) Assessment and Plan The exam, history, and the medical decision-making described in the above note were completed with the assistance of the PA-C. I reviewed and agree with the findings presented. (Amos Bruno MD) Problem Qualifiers (1) COPD (chronic obstructive pulmonary disease): (2) HTN (hypertension): Qualified Codes: I10 - Essential (primary) hypertension Lashell Ch Aug 02, 2017 12:07 Amos Bruno MD Aug 21, 2017 16:48
--- NOTE | 2017-08-02 13:22 | EKG ---
Date Performed: 08/01/2017 Time Performed: 18:34:30 PTAGE: 62 years EKG: Sinus rhythm LEFT AXIS DEVIATION LEFT ANTERIOR FASCICULAR BLOCK POOR R-WAVE PROGRESSION, WHICH MAY BE DUE TO THE LEFT ANTERIOR FASCICULAR BLOCK CANNOT EXCLUDE OLD ANTERIOR INFARCT BUT THERE IS NO CHANGE FROM THE RI IOR TRACING. ABNORMAL ECG PREVIOUS TRACING : 08/01/2017 08.42 DOCTOR: Emilio Peters Interpretating Date/Time 08/02/2017 13:22:18
--- NOTE | 2017-08-02 13:23 | EKG ---
Date Performed: 08/01/2017 Time Performed: 21:57:58 PTAGE: 62 years EKG: Sinus rhythm MARKED LEFT AXIS DEVIATION POSSIBLE ANTERIOR MYOCARDIAL INFARCTION , OF INDETERMINATE AGE ABNORMAL E CG Since PREVIOUS TRACING , no significant change noted PREVIOUS TRACIN08/01/2017 18.34 DOCTOR: Emilio Peters Interpretating Date/Time 08/02/2017 13:22:32
--- NOTE | 2017-08-02 13:46 | EKG ---
Date Performed: 08/02/2017 Time Performed: 05:43:12 PTAGE: 62 years EKG: Sinus rhythm . Left axis deviation Poor R wave progression - cannot rule out anteroseptal infarct Abnormal ECG PREVIOUS TRACING : 08/01/2017 21.57 DOCTOR: Emilio Peters Interpretating Date/Time 08/02/2017 13:45:21
--- NOTE | 2017-08-02 13:54 | HHI.FF ---
Face to Face Verification Diagnosis: (1) Hypoxia (2) COPD (chronic obstructive pulmonary disease) (3) Chest pain Physical Therapy Order: Evaluate and Treat Home Health Nursing Order: Medical education Nursing assessment with vital signs I have seen patient Sarbjit Burgess on 08/02/17. My clinical findings support the need for the requested home health care services because: Patient has SOB Deconditioned w/ increased weakness Limited ability to care for self Need for psychosocial assistance Impaired cognition/judgement I certify that my clinical findings support that this patient is homebound because: Hx COPD- exertion dyspnea/weakness Unsteady gait/balance Need for psychosocial assistance Harika Chawla [facility] Aug 02, 2017 13:54
--- NOTE | 2017-08-02 13:59 | HHI.PR ---
Subjective Remarks Patient examined in hemodialysis Tolerating treatment well No chest pain No shortness of breath On oxygen at 2 L, sats 98% Patient anxious to go home Objective Objective Results - Vital Signs Date Time Temp Pulse Resp B/P (MAP) Pulse Ox O2 Delivery O2 Flow Rate FiO2 08/02/17 12:00 96.7 74 18 145/87 (106) 96 08/02/17 09:22 99 Nasal Cannula 2.00 08/02/17 08:00 98.4 74 18 147/71 (96) 97 08/02/17 03:46 96.7 83 18 127/66 (86) 93 08/01/17 23:54 97.6 70 18 149/55 (86) 98 08/01/17 20:11 96 Nasal Cannula 1.50 08/01/17 20:07 98 Nasal Cannula 2.00 08/01/17 19:17 98.4 67 18 165/73 (103) 97 08/01/17 14:54 96.6 68 16 150/70 (96) 95 08/01/17 14:30 98.4 63 17 131/63 (85) 98 08/01/17 14:15 60 16 130/60 (83) 99 I/O 08/01/17 08/01/17 08/01/17 08/02/17 08/02/17 08/02/17 07:00 15:00 23:00 07:00 15:00 23:00 Intake Total 20 ml 360 ml 360 ml Balance 20 ml 360 ml 360 ml Intake Oral 360 ml 360 ml Other 20 ml # Voids 0 0 # Bowel Movements 0 0 Result Diagram: 08/02/17 0556 08/02/17 0015 Imaging Last Impressions Chest X-Ray 08/01/17 0000 Signed Impressions: Service Date/Time: July 11:19 - CONCLUSION: Normal examination. David Bird MD Other Results Laboratory Tests Test 08/01/17 17:55 08/02/17 00:15 08/02/17 05:56 Total Creatine Kinase 189 145 116 Troponin I LESS THAN 0.02 LESS THAN 0.02 LESS THAN 0.02 Blood Urea Nitrogen 41 Creatinine 8.41 Random Glucose 136 Albumin 2.9 Calcium Level 8.1 Phosphorus Level 4.7 Sodium Level 136 Potassium Level 4.8 Chloride Level 102 Carbon Dioxide Level 25.8 Anion Gap 8 Estimat Glomerular Filtration Rate 8 White Blood Count 7.0 Red Blood Count 3.96 Hemoglobin 9.4 Hematocrit 30.2 Mean Corpuscular Volume 76.2 Mean Corpuscular Hemoglobin 23.7 Mean Corpuscular Hemoglobin Concent 31.2 Red Cell Distribution Width 15.1 Platelet Count 196 Mean Platelet Volume 7.9 ROS General: No: Fatigue, Weakness HEENT: No: Sore Throat, Dysphagia Cardiac: No: Chest Pain, Edema, Palpitations Pulmonary: No: Cough, SOB, Wheezing GI: No: Abdominal Pain, BM, Diarrhea, N/V /[employer] PERSON: No: Dysuria, Urgency Neuro/MS: No: Lightheaded, Confusion Psych: No: Anxiety, Depression Skin: No: Itching, Rash Physical Exam Physical Exam GENERAL: This is a well-nourished, well-developed patient, in no apparent distress. SKIN: No rashes, ecchymoses or lesions. Cool and dry. HEAD: Atraumatic. Normocephalic. No temporal or scalp tenderness. EYES: Right pupil reactive. 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 Extraocular motions intact. No scleral icterus. No injection or drainage. ENT: Nose without bleeding, purulent drainage or septal hematoma. Throat without erythema, tonsillar hypertrophy or exudate. Uvula midline. Airway patent. NECK: Trachea midline. No JVD or lymphadenopathy. Supple, nontender, no meningeal signs. CARDIOVASCULAR: Regular rate and rhythm without murmurs, gallops, or rubs. RESPIRATORY: Diminished at bases GASTROINTESTINAL: Abdomen soft, non-tender, nondistended. No hepato-splenomegaly , or palpable masses. No guarding. MUSCULOSKELETAL: Extremities without clubbing, cyanosis, or edema. Pedal pulses 2+ bilaterally. No joint tenderness, effusion, or edema noted. No calf tenderness. Negative Homans sign bilaterally. Left upper extremity with AV fistula, positive bruit and thrill NEUROLOGICAL: Awake, alert oriented 3. No focal deficits. Urinary Catheter: No Vascular Central Line Catheter: No A/P Diagnosis: (1) Chest pain ICD Codes: R07.9 - Chest pain, unspecified Status: Acute (2) Hypoxia ICD Codes: R09.02 - Hypoxemia Status: Acute (3) Dysphagia ICD Codes: R13.10 - Dysphagia, unspecified Status: Acute (4) ESRD (end stage renal disease) on dialysis ICD Codes: N18.6 - End stage renal disease; Z99.2 - Dependence on renal dialysis Status: Chronic (5) HTN (hypertension) ICD Codes: I10 - Essential (primary) hypertension Status: Chronic (6) Diabetes 1.5, managed as type 2 ICD Codes: E10.9 - Type 1 diabetes mellitus without complications Status: Chronic (7) Achalasia ICD Codes: K22.0 - Achalasia of cardia Status: Acute (8) COPD (chronic obstructive pulmonary disease) ICD Codes: J44.9 - Chronic obstructive pulmonary disease, unspecified Status: Chronic Assessment and Plan 62-year-old male presented for elective EGD with Botox injection for history of achalasia, had apneic event with hypoxia. Complaining of chest pain. Chest pain, rule out acute coronary syndrome -Labs reviewed, no significant changes except for presence of end-stage renal disease. Serial cardiac enzymes negative, no ST T wave changes and EKG. -Remains chest pain-free, no shortness of breath. -Continue with aspirin Episode of hypoxia preprocedure COPD oxygen dependent -Chest x-ray has been completed, findings of been reviewed. No acute findings. -Continue supplemental oxygen to keep sats greater than 92 -DuoNeb's as needed -No complaints of respiratory distress, hypoxic events. Patient is stable for discharge. Hypertension, stable -Continue home meds End-stage renal disease on dialysis Saturday and Saturday. Compliant with treatments -Consulted nephrology-input appreciated. -Hemodialysis in progress, tolerating well Type 2 diabetes -Accu-Cheks before meals and at bedtime with insulin therapy as needed Sleep apnea -Continue with CPAP from home History of achalasia with dilated esophagus status post EGD with Botox injection-findings of gastritis to the antrum, all PEG tube site noted, esophagitis distal esophagus, dilated esophagus with tight EG junction consistent with achalasia. Was injected with the 100 units of Botox. -Continue present diet -Monitor for dysphagia -Continue with PPI -GI following -No difficulty with swallowing, tolerating diet well. Continue with Pepcid for GI prophylaxis SCDs for DVT prophylaxis Patient is stable, no hypoxic events. Chest pain-free. Serial cardiac enzymes negative Case management consultation to resume home health care Discharge home with home health care Follow up with GI and nephrology Diet heart healthy, renal Activity as tolerated Discussed with RN Discussed with case management Discussed with patient Discussed with Dr. Honeycutt This patient was seen by myself and Dr. Honeycutt, this note is written on his behalf Discharge Planning 40 Problem Qualifiers (1) Chest pain: Qualified Codes: R07.9 - Chest pain, unspecified (2) Dysphagia: Qualified Codes: R13.10 - Dysphagia, unspecified (3) HTN (hypertension): Qualified Codes: I10 - Essential (primary) hypertension (4) COPD (chronic obstructive pulmonary disease): Harika Chawla Aug 02, 2017 13:59
--- NOTE | 2017-08-02 15:25 | HHI.DCPOC ---
Discharge Care Plan Diagnosis: (1) Hypoxia (2) Chest pain Your Health Problems Are: Chest Pain Shortness of Breath Goals to Promote Your Health * To prevent worsening of your condition and complications * To maintain your health at the optimal level Directions to Meet Your Goals Take your medications as prescribed Follow your dietary instruction Follow activity as directed Keep your appointments as scheduled Take your immunizations and boosters as scheduled If your symptoms worsen call your PCP, if no PCP go to Urgent Care Center or Emergency Room Smoking is Dangerous to Your Health. Avoid second hand smoke Call the 24-hour hour crisis hotline for domestic abuse at Harika Chawla. [facility] Aug 02, 2017 15:25
== END 2017-08-02 17:23 | disposition home health service (06) ==
LOC: HSDC 07:57 → HSDI 13:00 → N06A 14:49
PROVIDERS: ADMIT Internal Medicine Gastroenterology; ATTEND Internal Medicine Gastroenterology
DX: K22.0 Achalasia of cardia (principal); R13.10 Dysphagia, unspecified; K29.70 Gastritis, unspecified, without bleeding; N18.6 End stage renal disease; J44.9 Chronic obstructive pulmonary disease, unspecified; I13.2 Hypertensive heart and chronic kidney disease with heart failure and with stage 5 chronic kidney disease, or end stage renal disease; D63.1 Anemia in chronic kidney disease; R07.89 Other chest pain; E10.22 Type 1 diabetes mellitus with diabetic chronic kidney disease; G47.30 Sleep apnea, unspecified; I25.2 Old myocardial infarction; E21.3 Hyperparathyroidism, unspecified; K59.00 Constipation, unspecified; K31.84 Gastroparesis; N31.9 Neuromuscular dysfunction of bladder, unspecified; E10.43 Type 1 diabetes mellitus with diabetic autonomic (poly)neuropathy; D50.9 Iron deficiency anemia, unspecified; E78.5 Hyperlipidemia, unspecified; T86.12 Kidney transplant failure; Z99.2 Dependence on renal dialysis; Z94.0 Kidney transplant status; Z99.81 Dependence on supplemental oxygen
CPT/HCPCS: 00740; 43236; 43248; 71010; 80069; 82550; 82948; 84484; 85027; 88305; 88312; 93005; 94640; 94664; 96372; 96374; C1769; G0257; G0378; J0585; J1815; J2405; J7613; Q4081; 90935; J0360

== ENCOUNTER → 2017-08-26 | Outpatient (CLI) | payer MEDICARE, OTHER ==
[~2017-08-26] MED LIST changes: +AMLO10TA2 PO; -ATEN25TA PO; +LACT10SO PO; -NITR1SUB3 SL
== END ==
LOC: HRSP 10:01
DX: J44.9 Chronic obstructive pulmonary disease, unspecified (principal)
CPT/HCPCS: 94620

== ENCOUNTER 2018-03-04 08:56 | Observation (INO) | payer MEDICARE, OTHER ==
[~2018-03-04] VITALS: Ht 154.9 cm; Wt 94.6 kg
[~2018-03-04 08:56] MED LIST changes: +ASPI-183 PO; -ASPI325T PO; +CHOL1TAB29 PO; -CHOL1TAB31 PO
[2018-03-04] MEDS ORDERED: DORZ2SOL RIGHT EYE (09:38)
[2018-03-04] MEDS ORDERED: COMB0.2S RIGHT EYE (09:38)
[2018-03-04] MEDS ORDERED: LACTATED RINGER'S 1000 ML IV PRN (09:45)
[2018-03-04] MEDS ORDERED: POVIDONE IODINE 5% (ANTISEPSIS KIT) 4 APPLICATIONS EACH NARE PRN (09:45)
[2018-03-04] MEDS ORDERED: INSULIN HUMAN REGULAR 1,000 UNITS/10 ML VIAL SQ PRN (09:45)
[2018-03-04] MEDS ORDERED: CHLORHEXIDINE GLUCONATE 2 % 1 PACK (2 CLOTHS) TOPICAL PRN (09:45)
[2018-03-04] MEDS ORDERED: METOPROLOL TARTRATE 25 MG TAB PO PRN (09:45)
[2018-03-04] MEDS ORDERED: SODIUM CHLORID 0.9% 500 ML IV PRN (09:45)
[2018-03-04] MEDS ORDERED: DEXTROSE 5%-LACTATED RING INJ 1,000 ML IV SCH (09:45)
[2018-03-04] MEDS ORDERED: OXYGENDME NAS.CANULA (09:48)
[2018-03-04] MEDS ORDERED: ONABOTULINUMTOXINA INJ 100 UNITS/VIAL SCH (10:30)
[2018-03-04 10:46] LABS: AUTOMATED NEUTROPHIL # 4.4 TH/MM3 (1.8-7.7); BASOPHIL # 0.1 TH/MM3 (0-0.2); BASOPHIL % 0.8 % (0.0-2.0); EOSINOPHIL # 0.6 TH/MM3 (0-0.4); EOSINOPHIL % 7.6 % (0.0-4.0); HEMATOCRIT 31.9 % (39.0-51.0); HEMOGLOBIN 10.2 GM/DL (13.0-17.0); LYMPH % 23.5 % (9.0-44.0); LYMPHOCYTE # 1.8 TH/MM3 (1.0-4.8); MEAN CELL VOLUME 74.7 FL (80.0-100.0); MEAN CORPUSCULAR HEMOGLOBIN 23.9 PG (27.0-34.0); MEAN PLATELET VOLUME 8.3 FL (7.0-11.0); MONO % 9.8 % (0.0-8.0); MONOCYTE # 0.7 TH/MM3 (0-0.9); NEUT % 58.3 % (16.0-70.0); PLATELET COUNT 124 TH/MM3 (150-450); RED BLOOD COUNT 4.28 MIL/MM3 (4.50-5.90); RED CELL DISTRIBUTION WIDTH 13.8 % (11.6-17.2); WHITE BLOOD COUNT 7.5 TH/MM3 (4.0-11.0)
[2018-03-04 11:35] LABS: BICARBONATE 26.7 MEQ/L (21.0-32.0); CALCIUM 8.6 MG/DL (8.5-10.1); CREATININE 7.4 MG/DL (0.60-1.30)
[2018-03-04] MEDS ORDERED: ePHEDrine/NS 25 MG/5 ML SYRINGE IV ONE (12:00)
[2018-03-04] MEDS ORDERED: PHENYLEPH/NS 1000 MCG/10 ML SYR IV ONE (12:00)
[2018-03-04] MEDS ORDERED: SUCCINYLCHOLINE CHLORIDE 200 MG/10 ML VIAL IV ONE (12:00)
[2018-03-04] MEDS ORDERED: ONDANSETRON HCL 4 MG/2 ML VIAL IV ONE (12:00)
[2018-03-04] MEDS ORDERED: LIDOCAINE HCL 1% PF 5 ML SYRINGE OTHER ONE (12:00)
[2018-03-04] MEDS ORDERED: PROPOFOL 200 MG/20 ML AMP IV ONE (12:00)
--- NOTE | 2018-03-04 12:41 | GIPROC ---
[facility] [address] [facility]. [facility], [address] EGD PROCEDURE REPORT EXAM DATE: 03/04/2018 PATIENT NAME: Sarbjit Burgess MR #: [id number] BIRTHDATE: 1955 ATTENDING: Abril Herndon MD ORDER #: [id number] CELL EFFICIENCY SUPERVISOR: Bran Schneider and Allyn Child STATUS: outpatient INDICATIONS: The patient is a 62 yr old male here for an EGD due to achalasia dysphagia PROCEDURE PERFORMED: EGD w/ biopsy EGD w/ directed submucosal injection(s), any substance egd with foreign body removal MEDICATIONS: None and Per Anesthesia. TOPICAL ANESTHETIC: none CONSENT: The patient understands the risks and benefits of the procedure and understands that these risks include, but are not limited to: sedation, allergic reaction, infection, perforation and/or bleeding. Alternative means of evaluation and treatment include, among others: physical exam, x-rays, and/or surgical intervention. The patient elects to proceed with this endoscopic procedure. medical equipment was checked for proper function. Hand hygiene and appropriate measures for infection prevention was taken. After the risks, benefits and alternatives of the procedure were thoroughly explained, Informed consent was verified, confirmed and timeout was successfully executed by the treatment team. The patient was anesthetized with topical anesthesia and the Pentax [id number] endoscope was introduced through the mouth and advanced to the second portion of the duodenum. Retroflexed views revealed a hiatal hernia The gastroscope was then slowly withdrawn and removed. Large amount of food in esophagus-removed using net food in stomach BOTOX injected at ge junction-100 units-25 units in each quadrant some bleeding noted from one of the injection site, a clip was applied-small hematoma noted no further bleeding after clip apllication. ADVERSE EVENTS: There were no complications. IMPRESSIONS: 1. Large amount of food in esophagus-removed using net food in stomach BOTOX injected at ge junction-100 units-25 units in each quadrant some bleeding noted from one of the injection site, a clip was applied-small hematoma noted no further bleeding after clip apllication 2. Retroflexed views revealed a hiatal hernia RECOMMENDATIONS: 1. Anti-reflux regimen 2. Continue PPI 3. Clear liquid diet admit for 23 hrs observation to hospitalist monitor hb/ht cbc, cmp, pt/inr, ct chest no iv contrast will need hd in am -to be arranged PATIENT CONDITION: stable DISPOSITION: Observation REPEAT EXAM: Return 3 months EGD Abril Herndon MD eSigned: Abril Herndon MD 03/04/2018 12:41 PM cc: Sandip Wadsworth M.D. PATIENT NAME: Sarbjit Burgess MR#: [id number]
[2018-03-04] MEDS ORDERED: DO NOT ADM ANY ANTICOAGULANT DRUGS PRN (12:59)
[2018-03-04] MEDS ORDERED: RESP: ALBUTEROL 0.63 MG/3 ML NEB (PRN) NEB (15:00)
[2018-03-04] MEDS ORDERED: CALCIUM CARBONATE 500 MG CHEWABLE TAB CHEW PRN (15:00)
[2018-03-04 15:32] LABS: PROTHROMBIN TIME - PATIENT 10.4 SEC (9.8-11.6)
[2018-03-04 16:00] VITALS: BP 152/70; PULSE 61; RESP 18; TEMP 97.5; O2SAT 96
[2018-03-04] MEDS ORDERED: PANTOPRAZOLE SODIUM 40 MG VIAL IV PUSH ONE (16:00)
[2018-03-04] MEDS: INSULIN ASPART SUPPLEMENTAL SCALE SQ SCH ×2 (16:32→21:00)
[2018-03-04] MEDS ORDERED: LACTULOSE SYRUP 20 GM/30 ML CUP PO PRN (16:45)
[2018-03-04] MEDS ORDERED: DEXTROSE 50% IN WATER 50 ML VIAL(D50) IV PUSH PRN (16:45)
[2018-03-04] MEDS ORDERED: SODIUM CHLORIDE 0.9% FLUSH 10 ML FLUSH IV FLUSH PRN (16:45)
[2018-03-04] MEDS ORDERED: BISACODYL 10 MG SUPP RECTAL PRN (16:45)
[2018-03-04] MEDS ORDERED: NALOXONE HCL 0.4 MG/ML AMP IV PUSH PRN (16:45)
[2018-03-04] MEDS ORDERED: GLUCAGON 1 MG/ML VIAL OTHER PRN (16:45)
[2018-03-04] MEDS ORDERED: MAGNESIUM HYDROXIDE SUSP 30 ML CUP PO PRN (16:45)
[2018-03-04] MEDS ORDERED: SENNOSIDES 8.6 MG TAB PO PRN (16:45)
--- NOTE | 2018-03-04 16:46 | PD.CONS ---
HPI History of Present Illness This is a 62 year old male with hx kidney disease, DM, glaucoma, dysphagia requiring multple EGD and botox injections who presented for EGD and botox injection. He has difficulties swallowing solid foods, the food takes a long time to go down and he has to eat very slowly. he has no trouble swallowing liquids. His last EGD was 08/01/17 with botox inj and finding of gastritis, achalasia. He had EGD and botox inj today and findings of large amount of food that was removed. Pt is poor historian. (Lauren Martin) PFSH Past Medical History kidney dz DM on HD glaucoma blind in left eye Past Surgical History AV fistula chaitanya knee replacements kidney surgery (Lauren Martin) Coded Allergies: cephalexin (Unverified Allergy, Unknown, 03/04/18) rash *MDRO Multi-Drug Resistant Organism (Verified Adverse Reaction, Unknown, ) ESBL (abdomenn wound) 08/2012 Family History DM Social History denies toxic habits (Lauren Martin) Review of Systems Constitutional: DENIES: Fever Endocrine: DENIES: Polydipsia Eyes: COMPLAINS OF: Blurred vision Ears, nose, mouth, throat: DENIES: Hearing loss Respiratory: DENIES: Cough Cardiovascular: DENIES: Chest pain Gastrointestinal: COMPLAINS OF: Difficulty Swallowing, DENIES: Abdominal pain, Nausea, Vomiting Genitourinary: DENIES: Hematuria Musculoskeletal: DENIES: Joint Swelling Integumentary: DENIES: Abnormal pigmentation Hematologic/lymphatic: DENIES: Bruising Immunologic/allergic: DENIES: Eczema Neurologic: DENIES: Headache Psychiatric: DENIES: Anxiety (Lauren Martin) GI Exam Vitals I&O Vital Signs Date Time Temp Pulse Resp B/P (MAP) Pulse Ox O2 Delivery O2 Flow Rate FiO2 03/04/18 15:30 57 12 144/67 (92) 99 Nasal Cannula 2 03/04/18 15:00 58 12 134/62 (86) 100 Nasal Cannula 2 03/04/18 14:30 60 12 134/64 (87) 100 Nasal Cannula 2 03/04/18 14:00 64 14 128/62 (84) 100 Nasal Cannula 2 03/04/18 13:45 60 13 121/59 (79) 96 Nasal Cannula 2 03/04/18 13:30 60 12 110/53 (72) 98 Nasal Cannula 2 03/04/18 13:15 64 13 143/58 (86) 98 Nasal Cannula 2 03/04/18 12:59 97.7 66 15 127/59 (81) 100 Nasal Cannula 2 03/04/18 09:48 99.2 65 16 116/59 (78) 98 I/O 03/03/18 03/03/18 03/03/18 03/04/18 03/04/18 03/04/18 07:00 15:00 23:00 07:00 15:00 23:00 Intake Total 250 ml Balance 250 ml Other 250 ml Laboratory Test 03/04/18 10:06 03/04/18 11:00 03/04/18 14:39 White Blood Count 7.5 TH/MM3 Red Blood Count 4.28 MIL/MM3 Hemoglobin 10.2 GM/DL Hematocrit 31.9 % Mean Corpuscular Volume 74.7 FL Mean Corpuscular Hemoglobin 23.9 PG Mean Corpuscular Hemoglobin Concent 32.0 % Red Cell Distribution Width 13.8 % Platelet Count 124 TH/MM3 Mean Platelet Volume 8.3 FL Neutrophils (%) (Auto) 58.3 % Lymphocytes (%) (Auto) 23.5 % Monocytes (%) (Auto) 9.8 % Eosinophils (%) (Auto) 7.6 % Basophils (%) (Auto) 0.8 % Neutrophils # (Auto) 4.4 TH/MM3 Lymphocytes # (Auto) 1.8 TH/MM3 Monocytes # (Auto) 0.7 TH/MM3 Eosinophils # (Auto) 0.6 TH/MM3 Basophils # (Auto) 0.1 TH/MM3 CBC Comment DIFF FINAL Differential Comment Blood Urea Nitrogen 42 MG/DL Creatinine 7.40 MG/DL Random Glucose 144 MG/DL Calcium Level 8.6 MG/DL Sodium Level 140 MEQ/L Potassium Level 4.5 MEQ/L Chloride Level 104 MEQ/L Carbon Dioxide Level 26.7 MEQ/L Anion Gap 9 MEQ/L Estimat Glomerular Filtration Rate 9 ML/MIN Prothrombin Time 10.4 SEC Prothromb Time International Ratio 1.0 RATIO Physical Examination HEENT: PERRL; normocephalic; atraumatic; no jaundice. CHEST: CTA CARDIAC: RRR ABDOMEN: Soft, protuberant, nontender; no hepatosplenomegaly; bowel sounds are present in all four quadrants. EXTREMITIES: No clubbing, cyanosis, or edema. SKIN: Normal; no rash; no jaundice. GALLEY COOK: No focal deficits; alert and oriented times three. (Lauren Martin) Assessment and Plan Plan ASSESSMENT - dysphagia - difficulty swallowing solids, bolus sensation. achalasia requiring mult EGD and botox injection procedures. s/p EGD and botox inj with finding large amount food esophagus that was removed. PLAN - clear liquids - monitor HH - chest CT - will need HD - supportive care - EGD 3m pt seen by myself and Dr Herndon and this note is on her behalf (Lauren Martin) Physician Comments egd/botox done-small amount of bleeding at the injection site, s/p clip applications for control of bleeding ct chest noted we will advance diet to soft egd/dil/botox in 3 month monitor hb/ht if stable may dc in am (Abril Herndon MD) Lauren Martin Mar 04, 2018 16:46 Abril Herndon MD Mar 04, 2018 20:49
--- NOTE | 2018-03-04 18:10 | HHI.HP ---
HPI Service [facility] Primary Care Physician Sandip Wadsworth MD Admission Diagnosis Diagnoses: (1) COPD (chronic obstructive pulmonary disease) (2) Achalasia Travel History International Travel<30 Days: No Contact w/Intl Traveler <30 Da: No Traveled to Known Affected Are: No History of Present Illness 62-year-old male with a history of COPD on oxygen, ESRD on dialysis Saturday, hypertension, type 2 diabetes, achalasia who presents following EGD with dilation. Patient required intubation by anesthesiology secondary to sleep apnea, however subsequently has been extubated. I have been called by Dr. Herndon for observation admission. Patient says he is feeling all right. Denies any chest pain or shortness of breath. Denies any nausea or vomiting. He is alert and oriented 4. Review of Systems Performed and negative except for HPI and past medical history. Past Family Social History Past Medical History ESRD on hemodialysis Hypertension Diabetes mellitus History of failed kidney transplant COPD on oxygen Sleep apnea on CPAP Achalasia Constipation Hiatal hernia Peptic ulcer disease CHF Gastroparesis Neurogenic bladder Iron deficiency anemia Hyperlipidemia Hyperparathyroidism TIA History of aspiration pneumonia Past Surgical History Pericardiocentesis Kidney transplant subsequently failed AV shunt placement Multiple EGDs with dilation and Botox injections Panendoscopy's. History of PEG tube placement and removal. Reported Medications Current Medications Medications (Trade) Dose Ordered Sig/Seun Route Start Time Stop Time Status Last Admin Sodium Chloride 500 ml @ 30 mls/hr [id number] PRN IV 03/04/18 09:45 03/07/18 09:44 03/04/18 09:57 (Lopressor) 25 mg SHIP ENGINES OPERATING ENGINEER PRN PO 03/04/18 09:45 03/07/18 09:44 (Betadine 5% Antisepsis Kit) 1 applic SHIP ENGINES OPERATING ENGINEER PRN EACH NARE 03/04/18 09:45 03/07/18 09:44 (Chlorhexidine 2% Cloth) 3 pack SHIP ENGINES OPERATING ENGINEER PRN TOPICAL 03/04/18 09:45 03/07/18 09:44 03/04/18 09:58 (Botox Inj) 100 units SHIP ENGINES OPERATING ENGINEER .XX 4/17/18 10:30 03/05/18 10:29 03/04/18 12:17 Miscellaneous Information ALL NURSING DEPARTME... UNSCH PRN .XX 03/04/18 12:59 03/05/18 12:58 (Albuterol Neb) 0.63 mg Q6HR NEB PRN NEB 03/04/18 15:00 (Norvasc) 10 mg DAILY PO 03/05/18 09:00 (Aspirin) 325 mg DAILY PO 03/05/18 09:00 (Tums Chew) 500 mg TID PRN CHEW 03/04/18 15:00 (Trusopt 2% Opth Soln) 1 drop BID RIGHT EYE 03/04/18 21:00 (Lactulose Liq) 30 ml BID PO 03/04/18 21:00 (Protonix) 40 mg DAILY PO 03/05/18 09:00 (Levemir Inj) 10 units HS SQ 03/04/18 21:00 (NovoLOG SUPPLEMENTAL SCALE) 1 ACHS SLIDING SCALE SQ 03/04/18 17:00 (D50w (Vial) Inj) 50 ml UNSCH PRN IV PUSH 03/04/18 16:45 (Glucagon Inj) 1 mg UNSCH PRN OTHER 03/04/18 16:45 (Pepcid) 20 mg DAILY PO 03/05/18 09:00 Patient Own Medication PT OWN MED: SPIR... DAILY INH 03/05/18 09:00 Future Hold Patient Own Medication PT OWN MED: COMBI... BID RIGHT EYE 03/04/18 21:00 Future Hold (NS Flush) 2 ml UNSCH PRN IV FLUSH 03/04/18 16:45 (NS Flush) 2 ml BID IV FLUSH 03/04/18 21:00 (Narcan Inj) 0.4 mg UNSCH PRN IV PUSH 03/04/18 16:45 (Milk Of Magnesia Liq) 30 ml Q12H PRN PO 03/04/18 16:45 (Senokot) 17.2 mg Q12H PRN PO 03/04/18 16:45 (Dulcolax Supp) 10 mg DAILY PRN RECTAL 03/04/18 16:45 (Lactulose Liq) 30 ml DAILY PRN PO 03/04/18 16:45 Current Medications Medications (Trade) Dose Ordered Sig/Seun Route Start Time Stop Time Status Last Admin Sodium Chloride 500 ml @ 30 mls/hr [id number] PRN IV 03/04/18 09:45 03/07/18 09:44 03/04/18 09:57 (Lopressor) 25 mg SHIP ENGINES OPERATING ENGINEER PRN PO 03/04/18 09:45 03/07/18 09:44 (Betadine 5% Antisepsis Kit) 1 applic SHIP ENGINES OPERATING ENGINEER PRN EACH NARE 03/04/18 09:45 03/07/18 09:44 (Chlorhexidine 2% Cloth) 3 pack SHIP ENGINES OPERATING ENGINEER PRN TOPICAL 03/04/18 09:45 03/07/18 09:44 03/04/18 09:58 (Botox Inj) 100 units SHIP ENGINES OPERATING ENGINEER .XX 03/04/18 10:30 03/05/18 10:29 03/04/18 12:17 Miscellaneous Information ALL NURSING DEPARTME... UNSCH PRN .XX 03/04/18 12:59 03/05/18 12:58 (Albuterol Neb) 0.63 mg Q6HR NEB PRN NEB 03/04/18 15:00 (Norvasc) 10 mg DAILY PO 03/05/18 09:00 (Aspirin) 325 mg DAILY PO 03/05/18 09:00 (Tums Chew) 500 mg TID PRN CHEW 03/04/18 15:00 (Trusopt 2% Opth Soln) 1 drop BID RIGHT EYE 03/04/18 21:00 (Lactulose Liq) 30 ml BID PO 03/04/18 21:00 (Protonix) 40 mg DAILY PO 03/05/18 09:00 (Levemir Inj) 10 units HS SQ 03/04/18 21:00 (NovoLOG SUPPLEMENTAL SCALE) 1 ACHS SLIDING SCALE SQ 03/04/18 17:00 (D50w (Vial) Inj) 50 ml UNSCH PRN IV PUSH 03/04/18 16:45 (Glucagon Inj) 1 mg UNSCH PRN OTHER 03/04/18 16:45 (Pepcid) 20 mg DAILY PO 03/05/18 09:00 Patient Own Medication PT OWN MED: SPIR... DAILY INH 03/05/18 09:00 Future Hold Patient Own Medication PT OWN MED: COMBI... BID RIGHT EYE 03/04/18 21:00 Future Hold (NS Flush) 2 ml UNSCH PRN IV FLUSH 03/04/18 16:45 (NS Flush) 2 ml BID IV FLUSH 03/04/18 21:00 (Narcan Inj) 0.4 mg UNSCH PRN IV PUSH 03/04/18 16:45 (Milk Of Magnesia Liq) 30 ml Q12H PRN PO 03/04/18 16:45 (Senokot) 17.2 mg Q12H PRN PO 03/04/18 16:45 (Dulcolax Supp) 10 mg DAILY PRN RECTAL 03/04/18 16:45 (Lactulose Liq) 30 ml DAILY PRN PO 03/04/18 16:45 Allergies: Coded Allergies: cephalexin (Unverified Allergy, Unknown, 03/04/18) rash *MDRO Multi-Drug Resistant Organism (Verified Adverse Reaction, Unknown, ) ESBL (abdomenn wound) 08/2012 Family History DM Social History Non-smoker. Nondrinker. Denies illicit drugs. Physical Exam Vital Signs Vital Signs Date Time Temp Pulse Resp B/P (MAP) Pulse Ox O2 Delivery O2 Flow Rate FiO2 03/04/18 15:30 57 12 144/67 (92) 99 Nasal Cannula 2 03/04/18 15:00 58 12 134/62 (86) 100 Nasal Cannula 2 03/04/18 14:30 60 12 134/64 (87) 100 Nasal Cannula 2 03/04/18 14:00 64 14 128/62 (84) 100 Nasal Cannula 2 03/04/18 13:45 60 13 121/59 (79) 96 Nasal Cannula 2 03/04/18 13:30 60 12 110/53 (72) 98 Nasal Cannula 2 03/04/18 13:15 64 13 143/58 (86) 98 Nasal Cannula 2 03/04/18 12:59 97.7 66 15 127/59 (81) 100 Nasal Cannula 2 03/04/18 09:48 99.2 65 16 116/59 (78) 98 Physical Exam GENERAL: This is a well-nourished, well-developed patient, in no apparent distress. Alert and oriented 4. SKIN: No rashes, ecchymoses or lesions. Cool and dry. HEAD: Atraumatic. Normocephalic. No temporal or scalp tenderness. EYES: Pupils equal round and reactive. Extraocular motions intact. No scleral icterus. No injection or drainage. ENT: Nose without bleeding, purulent drainage or septal hematoma. Throat without erythema, tonsillar hypertrophy or exudate. Uvula midline. Airway patent. NECK: Trachea midline. No JVD or lymphadenopathy. Supple, nontender, no meningeal signs. CARDIOVASCULAR: Regular rate and rhythm without murmurs, gallops, or rubs. RESPIRATORY: Clear to auscultation. Breath sounds equal bilaterally. No wheezes , rales, or rhonchi. GASTROINTESTINAL: Abdomen soft, non-tender, nondistended. No hepato-splenomegaly , or palpable masses. No guarding. MUSCULOSKELETAL: Extremities without clubbing, cyanosis. No joint tenderness, effusion. Trace bilateral lower extremity edema. No calf tenderness. Negative Homans sign bilaterally. NEUROLOGICAL: Awake and alert. Cranial nerves II through XII intact. Motor and sensory grossly within normal limits. Five out of 5 muscle strength in all muscle groups. Normal speech. Laboratory Laboratory Tests Test 03/04/18 10:06 03/04/18 11:00 03/04/18 14:39 White Blood Count 7.5 Red Blood Count 4.28 Hemoglobin 10.2 Hematocrit 31.9 Mean Corpuscular Volume 74.7 Mean Corpuscular Hemoglobin 23.9 Mean Corpuscular Hemoglobin Concent 32.0 Red Cell Distribution Width 13.8 Platelet Count 124 Mean Platelet Volume 8.3 Neutrophils (%) (Auto) 58.3 Lymphocytes (%) (Auto) 23.5 Monocytes (%) (Auto) 9.8 Eosinophils (%) (Auto) 7.6 Basophils (%) (Auto) 0.8 Neutrophils # (Auto) 4.4 Lymphocytes # (Auto) 1.8 Monocytes # (Auto) 0.7 Eosinophils # (Auto) 0.6 Basophils # (Auto) 0.1 CBC Comment DIFF FINAL Differential Comment Blood Urea Nitrogen 42 Creatinine 7.40 Random Glucose 144 Calcium Level 8.6 Sodium Level 140 Potassium Level 4.5 Chloride Level 104 Carbon Dioxide Level 26.7 Anion Gap 9 Estimat Glomerular Filtration Rate 9 Prothrombin Time 10.4 Prothromb Time International Ratio 1.0 Result Diagram: 03/04/18 1006 03/04/18 1100 Caprini VTE Risk Assessment Caprini VTE Risk Assessment: Mod/High Risk (score >= 2) Caprini Risk Assessment Model Point Value = 1 Point Value = 2 Point Value = 3 Point Value = 5 Age 41-60 Minor surgery BMI > 25 kg/m2 Swollen legs Varicose veins or History of unexplained or recurrent spontaneous Oral contraceptives or hormone replacement Sepsis (< 1 month) Serious lung disease, including pneumonia (< 1 month) Abnormal pulmonary function Acute myocardial infarction Congestive heart failure (< 1 month) History of inflammatory bowel disease Medical patient at bed rest Age 61-74 Arthroscopic surgery Major open surgery (> 45 min) Laparoscopic surgery (> 45 min) Malignancy Confined to bed (> 72 hours) Immobilizing plaster cast Central venous access Age >= 75 History of VTE Family history of VTE Factor V Leiden Prothrombin [id number] Lupus anticoagulant Anticardiolipin antibodies Elevated serum homocysteine Heparin-induced thrombocytopenia Other congenital or acquired thrombophilia Stroke (< 1 month) Elective arthroplasty Hip, pelvis, or leg fracture Acute spinal cord injury (< 1 month) Prophylaxis Regimen Total Risk Factor Score Risk Level Prophylaxis Regimen 0-1 Low Early ambulation 2 Moderate Order ONE of the following: *Sequential Compression Device (SCD) *Heparin 5000 units SQ BID 3-4 Higher Order ONE of the following medications: *Heparin 5000 units SQ TID *Enoxaparin/Lovenox 40 mg SQ daily (WT < 150 kg, CrCl > 30 mL/min) *Enoxaparin/Lovenox 30 mg SQ daily (WT < 150 kg, CrCl > 10-29 mL/min) *Enoxaparin/Lovenox 30 mg SQ BID (WT < 150 kg, CrCl > 30 mL/min) AND/OR *Sequential Compression Device (SCD) 5 or more Highest Order ONE of the following medications: *Heparin 5000 units SQ TID (Preferred with Epidurals) *Enoxaparin/Lovenox 40 mg SQ daily (WT < 150 kg, CrCl > 30 mL/min) *Enoxaparin/Lovenox 30 mg SQ daily (WT < 150 kg, CrCl > 10-29 mL/min) *Enoxaparin/Lovenox 30 mg SQ BID (WT < 150 kg, CrCl > 30 mL/min) AND *Sequential Compression Device (SCD) Assessment and Plan Assessment and Plan //Status post EGD with dilation and Botox injection. //GERD = Continue PPI. Clear diet. Necessity of overnight monitoring as per gastroenterology. //ESRD on hemodialysis Saturday and Saturday. Consult patient's pet training instructor for dialysis tomorrow. //COPD. Chronic. Continue patient's home medications. //Hypertension. Blood pressure acceptable. Continue home medications. //Diabetes mellitus. Diabetic diet. Continue half of patient's home long- acting regimen. Clears. Insulin sliding scale. //Glaucoma. Chronic. Continue home medications. //Sleep apnea. CPAP //Prophylaxis. SCDs. Coagulation as per gastroenterology due to recent procedure Discussed Condition With Patient, nurse, Beni Baltazar MD Mar 04, 2018 18:10
--- NOTE | 2018-03-04 20:18 | RADRPT ---
EXAM DATE/TIME: 03/04/2018 19:54 [place] COMPARISON: No previous studies available for comparison. INDICATIONS : Post operative EGD. RADIATION DOSE: 9.59 CTDIvol (mGy) MEDICAL HISTORY : Cardiovascular disease. Renal failure, chronic. Diabetes mellitus type 2. Hypertension; dialysis, CVA . SURGICAL HISTORY : Nephrectomy, EGD. ENCOUNTER: Initial ACUITY: 1 day PAIN SCALE: 4/10 LOCATION: Bilateral chest TECHNIQUE: Volumetric scanning of the chest was performed. Using automated exposure control and adjustment of t he mA and/or kV according to patient size, radiation dose was kept as low as reasonably achievable to obtain optimal diagnostic quality images. DICOM format image data is available electronically for r eview and comparison. Follow-up recommendations for detected pulmonary nodules are based at a minimum on nodule size and pa tient risk factors according to Fleischner Society Guidelines. FINDINGS: LUNGS: There is no consolidation or pneumothorax. No concerning pulmonary nodule is visualized. Interstitia l density in the left upper lobe and both lower lobes. There is some scarring bilaterally. PLEURAE: There is no pleural thickening or pleural effusion. MEDIASTINUM: The heart and great vessels demonstrate no acute abnormality. There is no mediastinal or hilar lymph adenopathy. Radiopaque density in the lumen of the distal esophagus. Esophagus is is dilated. Coronar y artery calcifications. AXILLAE: Within normal limits. No lymphadenopathy. MUSCULOSKELETAL: Within normal limits for patient age. MISCELLANEOUS: The visualized upper abdominal organs demonstrate no acute abnormality. CONCLUSION: 1. Linear radiopaque density distal esophagus. 2. Dilated esophagus. 3. Interstitial densities in the left upper lobe and both lower lobes. 4. Coronary artery calcifications. 5. Bilateral parenchymal scarring. Efren Ivy MD on March 04, 2018 at 20:12 Board Certified Radiologist. This report was verified electronically.
[2018-03-04] MEDS ORDERED: PT:COMBIGAN OPTH SOL RIGHT EYE SCH (21:00)
[2018-03-04] MEDS ORDERED: NON-FORMULARY DRUG (Brimonidine-Timolol Opth Drops (Combigan Opth Drops) 1 DROP) RIGHT EYE SCH (21:00)
[2018-03-04] MEDS ORDERED: INSULIN DETEMIR 100 UNITS/ML VIAL SQ SCH (21:00)
[2018-03-04] MEDS: DORZOLAMIDE 2% OPTH SOLN 200 DROP/10 ML BTLO RIGHT EYE SCH (21:00)
[2018-03-04 21:15] VITALS: BP 150/70; PULSE 64; RESP 16; TEMP 98.1; O2SAT 96
[2018-03-04] MEDS: SODIUM CHLORIDE 0.9% FLUSH 10 ML FLUSH IV FLUSH SCH (21:52)
[2018-03-04] MEDS: LACTULOSE SYRUP 20 GM/30 ML CUP PO SCH (21:52)
[2018-03-04 22:40] VITALS: O2SAT 97
[2018-03-05 00:14] VITALS: BP 145/67; PULSE 68; RESP 17; TEMP 97.6; O2SAT 98
[2018-03-05 04:30] VITALS: BP 125/57; PULSE 69; RESP 16; TEMP 98.6; O2SAT 96
[2018-03-05 08:36] VITALS: BP 154/74; PULSE 67; RESP 20; TEMP 97.9; O2SAT 96
[2018-03-05] MEDS ORDERED: PANTOPRAZOLE SOD 40 MG DELAYED RELEASE TAB PO SCH (09:00)
[2018-03-05] MEDS: DORZOLAMIDE 2% OPTH SOLN 200 DROP/10 ML BTLO RIGHT EYE SCH (09:00)
[2018-03-05] MEDS ORDERED: NON-FORMULARY DRUG (Ranitidine (Zantac) 150 MG) PO SCH (09:00)
[2018-03-05] MEDS ORDERED: ASPIRIN 325 MG TAB PO SCH (09:00)
[2018-03-05] MEDS ORDERED: NON-FORMULARY DRUG (Tiotropium Inh (Spiriva Respimat Inh) 2 PUFF) INH SCH (09:00)
[2018-03-05] MEDS ORDERED: PT:SPIRIVA RESPIMAT INH SCH (09:00)
[2018-03-05] MEDS ORDERED: FAMOTIDINE 20 MG TAB PO SCH (09:00)
[2018-03-05] MEDS: SODIUM CHLORIDE 0.9% FLUSH 10 ML FLUSH IV FLUSH SCH (09:19)
[2018-03-05] MEDS: LACTULOSE SYRUP 20 GM/30 ML CUP PO SCH (09:20)
[2018-03-05] MEDS ORDERED: SODIUM CHLOR 0.9% 1000 ML INJ 1,000 ML IV PRN (09:56)
[2018-03-05] MEDS ORDERED: SODIUM CHLOR 0.9% 1000 ML INJ 1,000 ML OTHER PRN ×2 (09:56)
[2018-03-05] MEDS ORDERED: ONDANSETRON HCL 4 MG/2 ML VIAL IV PUSH PRN (10:00)
[2018-03-05] MEDS ORDERED: diphenhydrAMINE HCL 25 MG CAP PO PRN (10:00)
[2018-03-05] MEDS ORDERED: MANNITOL 12.5 GM/50 ML VIAL IV PRN (10:00)
[2018-03-05] MEDS ORDERED: ACETAMINOPHEN 325 MG TAB PO PRN (10:00)
[2018-03-05] MEDS ORDERED: HEPARIN SODIUM - IV 10,000 UNITS/10 ML VIAL PRN (10:00)
[2018-03-05] MEDS ORDERED: ALBUMIN 25% INJ 100 ML IV PRN (10:00)
[2018-03-05] MEDS ORDERED: GELATIN 12 MM/7 MM FOAM TOP PRN (10:00)
[2018-03-05] MEDS ORDERED: HEPARIN SODIUM - IV 10,000 UNITS/10 ML VIAL IV FLUSH PRN (10:00)
[2018-03-05] MEDS ORDERED: GENTAMICIN SULFATE 20 MG/2 ML VIAL OTHER PRN (10:00)
[2018-03-05] MEDS ORDERED: SODIUM CHLORIDE 0.9% FLUSH 10 ML FLUSH IV FLUSH PRN (10:00)
[2018-03-05] MEDS ORDERED: cloNIDine HCL 0.1 MG TAB PO PRN (10:00)
[2018-03-05] MEDS ORDERED: NITROGLYCERIN 0.4 MG SL 25 TABS/BTL SL PRN (10:00)
[2018-03-05] MEDS: INSULIN ASPART SUPPLEMENTAL SCALE SQ SCH (12:00)
[2018-03-05 12:09] VITALS: BP 127/65; PULSE 68; RESP 20; TEMP 97.7; O2SAT 93
[2018-03-05 15:07] LABS: AUTOMATED NEUTROPHIL # 4.5 TH/MM3 (1.8-7.7); BASOPHIL # 0.1 TH/MM3 (0-0.2); BASOPHIL % 1.3 % (0.0-2.0); EOSINOPHIL # 0.6 TH/MM3 (0-0.4); EOSINOPHIL % 8.3 % (0.0-4.0); HEMATOCRIT 32.5 % (39.0-51.0); HEMOGLOBIN 10.9 GM/DL (13.0-17.0); LYMPH % 23.9 % (9.0-44.0); LYMPHOCYTE # 1.7 TH/MM3 (1.0-4.8); MEAN CORPUSCULAR HEMOGLOBIN 24.5 PG (27.0-34.0); MEAN CORPUSCULAR HGB CONC 33.6 % (32.0-36.0); MONO % 4.2 % (0.0-8.0); MONOCYTE # 0.3 TH/MM3 (0-0.9); NEUT % 62.3 % (16.0-70.0); PLATELET COUNT 185 TH/MM3 (150-450); RED BLOOD COUNT 4.45 MIL/MM3 (4.50-5.90); RED CELL DISTRIBUTION WIDTH 13.7 % (11.6-17.2); WHITE BLOOD COUNT 7.3 TH/MM3 (4.0-11.0)
--- NOTE | 2018-03-05 15:20 | HHI.PR ---
Subjective Remarks no acute issue going for HD later cleared by specialist for dc after hd Objective Vitals Vital Signs Date Time Temp Pulse Resp B/P (MAP) Pulse Ox O2 Delivery O2 Flow Rate FiO2 03/05/18 12:09 97.7 68 20 127/65 (85) 93 03/05/18 08:36 97.9 67 20 154/74 (100) 96 03/05/18 04:30 98.6 69 16 125/57 (79) 96 03/05/18 00:14 97.6 68 17 145/67 (93) 98 03/04/18 22:40 97 home cpap 2.00 03/04/18 21:15 98.1 64 16 150/70 (96) 96 03/04/18 16:00 97.5 61 18 152/70 (97) 96 03/04/18 15:30 57 12 144/67 (92) 99 Nasal Cannula 2 I/O 03/04/18 03/04/18 03/04/18 03/05/18 03/05/18 03/05/18 07:00 15:00 23:00 07:00 15:00 23:00 Intake Total 250 ml 1250 ml 1000 ml Output Total 0 ml 0 ml Balance 250 ml 1250 ml 1000 ml Intake Oral 1250 ml 1000 ml Other 250 ml Output Urine Total 0 ml 0 ml # Voids 0 # Bowel Movements 0 0 Result Diagram: 03/04/18 1006 03/04/18 1100 Objective Remarks GENERAL: This is a well-nourished, well-developed patient, in no apparent distress. CARDIOVASCULAR: Regular rate and rhythm without murmurs, gallops, or rubs. RESPIRATORY: Clear to auscultation. Breath sounds equal bilaterally. No wheezes , rales, or rhonchi. GASTROINTESTINAL: Abdomen soft, non-tender, nondistended. Normal active bowel sounds MUSCULOSKELETAL: Extremities without clubbing, cyanosis, or edema. NEURO: Alert & Oriented x4 to person, place, time, situation. Moves all ext x4 A/P Problem List: (1) COPD (chronic obstructive pulmonary disease) ICD Code: J44.9 - Chronic obstructive pulmonary disease, unspecified Status: Chronic (2) Achalasia ICD Code: K22.0 - Achalasia of cardia Status: Acute Assessment and Plan //Status post EGD with dilation and Botox injection. //GERD = Continue PPI. Clear diet. advance as tolerate d, cleared for dc after HD //ESRD on hemodialysis Saturday and Saturday. appreciate bead wire taper consult for dialysis //COPD. Chronic. Continue patient's home medications. //Hypertension. Blood pressure acceptable. Continue home medications. //Diabetes mellitus. Diabetic diet. Continue half of patient's home long- acting regimen. Clears. Insulin sliding scale. //Glaucoma. Chronic. Continue home medications. //Sleep apnea. CPAP //Prophylaxis. SCDs. Coagulation as per gastroenterology due to recent procedure Discharge Planning Discharge patient to home Condition on discharge: Improved HH , renal Diet as tolerated Ad Nicol activity Rx written:see med rec Follow-up with primary care physician, GI as directed John Tomas MD Mar 05, 2018 15:20
--- NOTE | 2018-03-05 15:38 | HHI.GIFU ---
Subjective Remarks resting in the bed Denies any nausea, vomiting, or Abd. Pain Blind Lt. Eye afebrile (Evie Puentes) Objective Vitals I&O Vital Signs Date Time Temp Pulse Resp B/P (MAP) Pulse Ox O2 Delivery O2 Flow Rate FiO2 03/05/18 12:09 97.7 68 20 127/65 (85) 93 03/05/18 08:36 97.9 67 20 154/74 (100) 96 03/05/18 04:30 98.6 69 16 125/57 (79) 96 03/05/18 00:14 97.6 68 17 145/67 (93) 98 03/04/18 22:40 97 home cpap 2.00 03/04/18 21:15 98.1 64 16 150/70 (96) 96 03/04/18 16:00 97.5 61 18 152/70 (97) 96 03/04/18 15:30 57 12 144/67 (92) 99 Nasal Cannula 2 I/O 03/04/18 03/04/18 03/04/18 03/05/18 03/05/18 03/05/18 07:00 15:00 23:00 07:00 15:00 23:00 Intake Total 250 ml 1250 ml 1000 ml Output Total 0 ml 0 ml Balance 250 ml 1250 ml 1000 ml Intake Oral 1250 ml 1000 ml Other 250 ml Output Urine Total 0 ml 0 ml # Voids 0 # Bowel Movements 0 0 Laboratory Laboratory Tests Test 03/05/18 14:52 Imaging Last Impressions Chest CT 03/04/18 0000 Signed Impressions: Service Date/Time: Sunday, March 04, 2018 19:54 - CONCLUSION: 1. Linear radiopaque density distal esophagus. 2. Dilated esophagus. 3. Interstitial densities in the left upper lobe and both lower lobes. 4. Coronary artery calcifications. 5. Bilateral parenchymal scarring. Efren Ivy MD Physical Exam HEENT: Rt Pupils round and reactive to light;Blind Lt. eye normocephalic; atraumatic; no jaundice. Speech audible, NECK: Neck is supple, CHEST: No audible rhonchi CARDIAC: S1, S2 ABDOMEN: round, obese, Soft, nondistended, nontender; no hepatosplenomegaly; bowel sounds are present in all four quadrants. EXTREMITIES: No clubbing, cyanosis, or edema. SKIN: Dry; no rash; no jaundice. PULP MAKER: No focal deficits; awakens to verbal stimuli. (Evie Puentes) Assessment and Plan Plan ASSESSMENT - dysphagia - difficulty swallowing solids, bolus sensation. achalasia requiring mult EGD and botox injection procedures. 03/05/18, Patient in Dialysis today, Denies any Upper or lower GI symptoms of pain or discomfort. No Abdominal pain. PLAN - Antireflux medication/program - clear liquid renal diet. - HD per protocol - Monitor labs - supportive care - Consider speech therapy for further recommendations. - Return for EGD in 3 months. Pt was seen by myself and Dr Herndon and this note is on her behalf (Evie Puentes) Physician Comments seen, examined he was evaluated in the past by speech pathology, had a g/j tube for few years, refused to have another one placed in, BOTOX injection was working for him diet was advanced to soft-tolerated well ok to dc home from gi point repeat cbc stable ct chest noted (Abril Herndon MD) Evie Puentes Mar 05, 2018 15:38 Abril Herndon MD Mar 05, 2018 17:00
--- NOTE | 2018-03-05 16:20 | PD.CONS ---
HPI Service Nephrology Consult Requested By Dr. Guerrero Reason for Consult Known ESRD on HD Primary Care Physician Sandip Wadsworth MD History of Present Illness The patient is a 62yo AA male who came to this facility for elective EGD with botox injection on 03/04. Was admitted for observation as he was temporarily intubated post procedure, but is now extubated. We have been consulted for dialysis management. He is typically MWF with last outpatient treatment this past Saturday. Is seen during HD today and tolerating well. Pt planned discharge post HD today. Past Family Social History Allergies: Coded Allergies: cephalexin (Unverified Allergy, Unknown, 03/04/18) rash *MDRO Multi-Drug Resistant Organism (Verified Adverse Reaction, Unknown, ) ESBL (abdomenn wound) 08/2012 Past Medical History ESRD on hemodialysis Hypertension Diabetes mellitus History of failed kidney transplant COPD on oxygen Sleep apnea on CPAP Achalasia Constipation Hiatal hernia Peptic ulcer disease CHF Gastroparesis Neurogenic bladder Iron deficiency anemia Hyperlipidemia Hyperparathyroidism TIA History of aspiration pneumonia Past Surgical History Pericardiocentesis Kidney transplant subsequently failed AV shunt placement Multiple EGDs with dilation and Botox injections Panendoscopy History of PEG tube placement and removal. Reported Medications Oxygen (O2) Device Liter KENYON.CANULA CONTINUOUS Oxygen Concentrator Portable Gaseous 2 L/min via Nasal Canula Continuous For 99 months Dorzolamide Opth Drops (Dorzolamide HCl) 2% Soln 1 Drop RIGHT EYE BID Combigan Opth Drops (Brimonidine-Timolol Opth Drops) 0.2-0.5% Soln 1 Drop RIGHT EYE Q12HR Lactulose Liq (Lactulose) 10 Gm/15 Ml Soln 30 Ml PO BID Amlodipine (Amlodipine Besylate) 10 Mg Tab 10 Mg PO DAILY Spiriva Respimat Inh (Tiotropium Inh) 1.25 Mcg/Act Aero 2 Puff INH DAILY 1.25 mcg = 1 inhalation Zantac (Ranitidine HCl) 150 Mg Tab 150 Mg PO DAILY Protonix (Pantoprazole Sodium) 40 Mg Tab 40 Mg PO DAILY Humalog Inj (Insulin Human Lispro) 1,000 Unit/10 Ml Vial 1-9 Units SQ ACHS Max dose at bedtime:( )units; sugars< 70,(0)units; sugars 150-199,(1)unit; sugars 200-249,(3)units; sugars 250-299,(5)units; sugars 300-349,(7)units; sugars more than 349,(9)units. Lantus Inj (Insulin Glargine) 1,000 Unit/10 Ml Vial 20 Units SQ HS Colestipol (Colestipol HCl) 1 Gm Tab 2 Gm PO BID Vitamin D3 Super Strength (Cholecalciferol) 2,000 Unit Tab 2,000 Units PO DAILY Tums (Calcium Carbonate (Antacid)) 500 Mg Chew 500 Mg CHEW TID PRN Aspirin 325 Mg Tab 325 Mg PO DAILY Albuterol Neb (Albuterol Sulfate) 0.63 Mg/3 Ml Neb 0.63 Mg NEB Q6HR NEB PRN Active Ordered Medications Current Medications Medications (Trade) Dose Ordered Sig/Seun Route Start Time Stop Time Status Last Admin Sodium Chloride 500 ml @ 30 mls/hr [id number] PRN IV 03/04/18 09:45 03/07/18 09:44 03/04/18 09:57 (Lopressor) 25 mg SENIOR EDITOR PRN PO 03/04/18 09:45 03/07/18 09:44 (Betadine 5% Antisepsis Kit) 1 applic SENIOR EDITOR PRN EACH NARE 03/04/18 09:45 03/07/18 09:44 (Chlorhexidine 2% Cloth) 3 pack SENIOR EDITOR PRN TOPICAL 03/04/18 09:45 03/07/18 09:44 03/04/18 09:58 (Albuterol Neb) 0.63 mg Q6HR NEB PRN NEB 03/04/18 15:00 (Norvasc) 10 mg DAILY PO 03/05/18 09:00 (Aspirin) 325 mg DAILY PO 03/05/18 09:00 03/05/18 09:19 (Tums Chew) 500 mg TID PRN CHEW 03/04/18 15:00 (Trusopt 2% Opth Soln) 1 drop BID RIGHT EYE 03/04/18 21:00 03/04/18 21:00 (Lactulose Liq) 30 ml BID PO 03/04/18 21:00 03/05/18 09:20 (Protonix) 40 mg DAILY PO 03/05/18 09:00 03/05/18 09:19 (Levemir Inj) 10 units HS SQ 03/04/18 21:00 03/04/18 21:52 (NovoLOG SUPPLEMENTAL SCALE) 1 ACHS SLIDING SCALE SQ 03/04/18 17:00 (D50w (Vial) Inj) 50 ml UNSCH PRN IV PUSH 03/04/18 16:45 (Glucagon Inj) 1 mg UNSCH PRN OTHER 03/04/18 16:45 (Pepcid) 20 mg DAILY PO 03/05/18 09:00 03/05/18 09:20 Patient Own Medication PT OWN MED: SPIR... DAILY INH 03/05/18 09:00 Future Hold Patient Own Medication PT OWN MED: COMBI... BID RIGHT EYE 03/04/18 21:00 Future Hold (NS Flush) 2 ml UNSCH PRN IV FLUSH 03/04/18 16:45 (NS Flush) 2 ml BID IV FLUSH 03/04/18 21:00 03/05/18 09:19 (Narcan Inj) 0.4 mg UNSCH PRN IV PUSH 03/04/18 16:45 (Milk Of Magnesia Liq) 30 ml Q12H PRN PO 03/04/18 16:45 (Senokot) 17.2 mg Q12H PRN PO 03/04/18 16:45 (Dulcolax Supp) 10 mg DAILY PRN RECTAL 03/04/18 16:45 (Lactulose Liq) 30 ml DAILY PRN PO 03/04/18 16:45 Sodium Chloride 1,000 ml @ 0 mls/hr Q0M PRN OTHER 03/05/18 09:56 (Heparin Inj) 8,000 units UNSCH PRN IV FLUSH 03/05/18 10:00 Sodium Chloride 1,000 ml @ 200 mls/hr Q5H PRN IV 03/05/18 09:56 Sodium Chloride 1,000 ml @ 0 mls/hr Q0M PRN OTHER 03/05/18 09:56 (Mannitol Inj) 12.5 gm UNSCH PRN IV 03/05/18 10:00 Albumin Human 100 ml @ 60 mls/hr UNSCH PRN IV 03/05/18 10:00 (NS Flush) 5 ml UNSCH PRN IV FLUSH 03/05/18 10:00 (Heparin Inj) UNSCH PRN .XX 03/05/18 10:00 (Gentamicin Inj) 20 mg UNSCH PRN OTHER 03/05/18 10:00 (Zofran Inj) 4 mg UNSCH PRN IV PUSH 03/05/18 10:00 (Tylenol) 650 mg UNSCH PRN PO 03/05/18 10:00 (Benadryl) 25 mg UNSCH PRN PO 03/05/18 10:00 (Nitrostat Sl) 0.4 mg UNSCH PRN SL 03/05/18 10:00 (Catapres) 0.1 mg UNSCH PRN PO 03/05/18 10:00 (Gelfoam 12 Mm/7 Mm Top) 1 foam UNSCH PRN TOP 03/05/18 10:00 Family History NC Social History Lives locally with his No EtOH, tobacco use Physical Exam Vital Signs Vital Signs Date Time Temp Pulse Resp B/P (MAP) Pulse Ox O2 Delivery O2 Flow Rate FiO2 03/05/18 12:09 97.7 68 20 127/65 (85) 93 03/05/18 08:36 97.9 67 20 154/74 (100) 96 03/05/18 04:30 98.6 69 16 125/57 (79) 96 03/05/18 00:14 97.6 68 17 145/67 (93) 98 03/04/18 22:40 97 home cpap 2.00 03/04/18 21:15 98.1 64 16 150/70 (96) 96 Physical Exam GENERAL: Seen during HD. Tolerating session well. In NAD SKIN: Warm and dry. HEAD: Atraumatic. Normocephalic. EYES: Pupils equal and round. No scleral icterus. No injection or drainage. ENT: No nasal bleeding or discharge. Mucous membranes pink and moist. NECK: Trachea midline. No JVD. CARDIOVASCULAR: Regular rate and rhythm. RESPIRATORY: No accessory muscle use. Clear to auscultation. Breath sounds equal bilaterally. GASTROINTESTINAL: Abdomen soft, non-tender, nondistended. Hepatic and splenic margins not palpable. MUSCULOSKELETAL: Extremities without clubbing, cyanosis, or edema. No obvious deformities. NEUROLOGICAL: Awake and alert. Normal speech. PSYCHIATRIC: Appropriate mood and affect; insight and judgment normal. Laboratory Laboratory Tests Test 03/05/18 14:52 Result Diagram: 03/04/18 1006 03/04/18 1100 Imaging Last Impressions Chest CT 03/04/18 0000 Signed Impressions: Service Date/Time: Sunday, March 04, 2018 19:54 - CONCLUSION: 1. Linear radiopaque density distal esophagus. 2. Dilated esophagus. 3. Interstitial densities in the left upper lobe and both lower lobes. 4. Coronary artery calcifications. 5. Bilateral parenchymal scarring. Efren Ivy MD Assessment and Plan Problem List: (1) ESRD (end stage renal disease) on dialysis ICD Codes: N18.6 - End stage renal disease; Z99.2 - Dependence on renal dialysis Status: Acute Plan: Pt seen during HD today and tolerating well. OK to be discharged from renal standpoint after HD today. Medications should be adjusted for the patient's ESRD. Avoid gadolinium. (2) HTN (hypertension) ICD Codes: I10 - Essential (primary) hypertension Status: Chronic Plan: Continue on home BP regimen (3) Achalasia ICD Codes: K22.0 - Achalasia of cardia Status: Acute Plan: Mgmt as per GI (4) Anemia in chronic kidney disease (CKD) ICD Codes: N18.9 - Chronic kidney disease, unspecified; D63.1 - Anemia in chronic kidney disease Lashell Ch Mar 05, 2018 16:20
[2018-03-05 17:26] VITALS: O2SAT 93
[2018-03-06] MEDS ORDERED: LANTUS2P SQ (08:56)
== END 2018-03-05 19:35 | disposition home or self-care (01) ==
LOC: HSDC 08:56 → N05B 17:40
PROVIDERS: ADMIT Hospitalist; ATTEND Hospitalist
DX: K21.9 Gastro-esophageal reflux disease without esophagitis (principal); I13.2 Hypertensive heart and chronic kidney disease with heart failure and with stage 5 chronic kidney disease, or end stage renal disease; I50.9 Heart failure, unspecified; E11.22 Type 2 diabetes mellitus with diabetic chronic kidney disease; N18.6 End stage renal disease; D63.1 Anemia in chronic kidney disease; K22.0 Achalasia of cardia; K22.8 Other specified diseases of esophagus; K44.9 Diaphragmatic hernia without obstruction or gangrene; R91.8 Other nonspecific abnormal finding of lung field; J44.9 Chronic obstructive pulmonary disease, unspecified; G47.30 Sleep apnea, unspecified; E78.5 Hyperlipidemia, unspecified; E11.43 Type 2 diabetes mellitus with diabetic autonomic (poly)neuropathy; K31.84 Gastroparesis; N31.9 Neuromuscular dysfunction of bladder, unspecified; H40.9 Unspecified glaucoma; H54.62 Unqualified visual loss, left eye, normal vision right eye; Z99.81 Dependence on supplemental oxygen; Z99.2 Dependence on renal dialysis; Z86.73 Personal history of transient ischemic attack (TIA), and cerebral infarction without residual deficits
CPT/HCPCS: 00731; 43236; 43247; 71250; 80048; 82948; 85025; 85610; 90935; 96372; 96374; C9113; G0378; J0330; J2370; J2405; J7040; J0585

== ENCOUNTER → 2018-04-03 | Outpatient (CLI) | payer MEDICARE, OTHER ==
[~2018-04-03] MED LIST changes: +COMB0.2S RIGHT EYE; +DORZ2SOL RIGHT EYE; +OXYGENDME NAS.CANULA
== END ==
LOC: PHRSP 07:24
PROVIDERS: ATTEND Internal Medicine Pulmonary Disease
DX: J44.9 Chronic obstructive pulmonary disease, unspecified (principal); R05 Cough; I12.0 Hypertensive chronic kidney disease with stage 5 chronic kidney disease or end stage renal disease; N18.6 End stage renal disease
CPT/HCPCS: 94060; 94729